=== PATIENT | female | born 1975 | race Caucasian/White ===

== ENCOUNTER 2023-03-18 20:13 | Inpatient (IN) ==
[2023-03-18 20:47] LABS: Basophils # (auto) 0.04 K/uL (0-0.2); Basophils % (auto) 0.3 %; Eosinophils % (auto) 0.7 %; Hematocrit (blood only) 40.1 % (37.0-47.0); Hemoglobin 13.7 g/dl (12.0-16.0); Immature Granulocytes # (auto) 0.07 K/uL (0.01-0.20); Immature Granulocytes % (auto) 0.5 %; Lymphocytes # (auto) 2.41 K/uL (1.2-3.4); Lymphocytes % (auto) 16.6 %; Mean Corpuscular Hemoglobin 32.5 pg (25.0-34.0); Mean Corpuscular Hgb Conc 34.2 g/dL (32.0-36.0); Mean Platelet Volume 9.1 fL (9.4-12.4); Monocytes # (auto) 1.08 K/uL (0.11-0.59); Monocytes % (auto) 7.4 %; Neutrophils % (auto) 74.5 %; Platelet Count 340 K/uL (130-400); RDW Coefficient of Variation 12.4 % (11.5-14.5); RDW Standard Deviation 43.3 fL (36.4-46.3); Red Blood Count 4.22 M/uL (4.20-5.40)
[2023-03-18 20:58] LABS: Pregnancy Test, Serum Negative (Negative)
[2023-03-18 21:00] LABS: Albumin Globulin Ratio 1.5 (0.9-2); Albumin Level 4.6 gm/dl (3.4-5.0); BUN Creatinine Ratio 13.6 (10-20); Bilirubin,Total 0.6 mg/dl (0.2-1.0); Calcium 9.8 mg/dl (8.6-10.3); Creatinine Clr Calc Pharmacy 91.2 ml/min; Est GFR (African American) 124.7 ml/min; Est GFR (Non-African American) 107.6 ml/min; Potassium 3.8 mmol/L (3.5-5.1); Total Protein 7.6 gm/dl (6.0-8.3)
[2023-03-18] MEDS ORDERED: ONDANSETRON INJ 2 MG/ML 2 ML VIAL IV STA (22:04)
[2023-03-18] MEDS ORDERED: ACETAMINOPHEN 1,000 MG/100 ML VIAL IV STA (22:41)
[2023-03-18] MEDS ORDERED: SODIUM CHLORIDE 0.9% 1000ML 1,000 ML IV ONE (22:41)
[2023-03-18] MEDS ORDERED: cefTRIAXone SODIUM 2,000 MG/70 ML BAG IV STA (22:44)
[2023-03-18] MEDS ORDERED: metroNIDAZOLE 500 MG/100 ML BAG IV STA (22:44)
--- NOTE | 2023-03-18 22:45 | Emergency Department Note ---
ED Provider Note History of Present Illness Chief Complaint: Abdominal Pain Stated Complaint: ABDOMINAL PAIN,DIVERTICULITIS,NAUSEA, D/C 03/03 Time Seen by Provider: 03/18/23 22:35 Home Medications Medication Instructions Recorded Confirmed Type mecobalamin (vitamin B12) PO DAILY 10/23/19 03/13/23 History multivitamin 1 tab PO DAILY 10/23/19 03/13/23 History buspirone 10 mg tablet 10 mg PO BID #180 tabs 03/12/22 03/13/23 Rx dicyclomine 10 mg capsule 10 mg PO BID PRN IBS #180 caps 05/21/22 03/13/23 Rx venlafaxine 75 mg capsule,extended 75 mg PO DAILY #90 caps 05/21/22 03/13/23 Rx release 24 hr (Effexor XR) clindamycin phosphate 1 % topical 1 applic topical DAILY #60 grams 08/06/22 03/13/23 Rx gel medroxyprogesterone 150 mg/mL 150 mg IM 10/26/22 03/13/23 History intramuscular syringe venlafaxine 150 mg 150 mg PO DAILY #90 caps 10/31/22 03/13/23 Rx capsule,extended release 24 hr (Effexor XR) amitriptyline 10 mg tablet 10 mg PO HS #90 tabs 11/21/22 03/13/23 Rx cholecalciferol (vitamin D3) 50 4,000 unit PO DAILY 11/29/22 03/13/23 History mcg (2,000 unit) capsule cholestyramine (with sugar) 4 gram 4 g PO BID #1,134 grams 02/07/23 03/13/23 Rx oral powder famotidine 20 mg tablet (Pepcid) 20 mg PO BID PRN acid reflux #60 03/13/23 03/13/23 Rx tabs mirabegron 50 mg tablet,extended 50 mg PO DAILY #90 tabs 03/13/23 03/13/23 Rx release 24 hr ondansetron HCl 4 mg tablet 4 mg PO Q8H PRN nausea and 03/13/23 03/13/23 Rx vomiting #30 tabs pantoprazole 40 mg tablet,delayed 40 mg PO DAILY #30 tabs 03/13/23 03/13/23 Rx release (Protonix) tretinoin 0.1 % topical cream 1 applic topical HS #45 grams 03/13/23 03/13/23 Rx Allergies Allergy/AdvReac Type Severity Reaction Status Date / Time Penicillins AdvReac Hives Verified 03/13/23 16:20 Past Med/Surg History Medical History Acid reflux Acne Anxiety Bipolar disorder Depression HLD (hyperlipidemia) IBS (irritable bowel syndrome) Migraine headache OCD (obsessive compulsive disorder) Vitamin D deficiency Surgical History S/P cholecystectomy (2009) Family History Aunt Breast cancer, Onset Age: 65 Mother Myocardial infarction, Onset Age: 41 Anxiety Depression Diabetes Heart disease Father Anxiety Lung cancer Diabetes Hypertension Lung disease Myocardial infarction Lymphoma Brother Anxiety Denies family history of Ovarian cancer Prostate cancer Colorectal cancer Social History Smoking Status: Never smoker Second Hand Exposure: Yes; Do You Dip or Chew Tobacco: No; Hx Alcohol Use: Yes Alcohol type: beer and wine Alcohol Intake Frequency: 2-3 x/Week Alcohol Intake Frequency Comment: few drinks per week Hx Substance Use: No Preferred Language: Hungarian Communication Ability: Effective Visual Impairment: No Limitations Hearing Ability: Normal [employer] Required: No Beliefs That Will Affect Care: None marital status: Single Current Living Situation: Parent Current Living Situation Comment: lives with mom current occupational status: disabled How many Children do You have: 3 Feels Safe at Home: Yes Childhood Exposure to Second-Hand Smoke: Yes Diet: regular caffeine: Yes (Coffee x 1 cup per day.) during the past year weight has: remained stable Dental Care, Regularly: Yes Physical Activity Frequency: Does not Exercise Seatbelt Use: always Sunscreen Use: Yes Physical Exam Vital Signs Vital Signs - 24 hr 03/18/23 20:19 Temperature 36.5 C Temperature Source Temporal Artery Scan Pulse Rate 99 H Respiratory Rate 18 Respiratory Depth Normal Blood Pressure 155/84 H Blood Pressure Mean 107 Pulse Oximetry 98 Oxygen Delivery Method Room Air Sepsis Recent Fever Within 48 Hours No Sepsis New/Unexplained Change in Mental Status N/A Sepsis Action Taken by Nursing No Action Required Medical Decision Making Laboratory Data 03/18/23 20:31 03/18/23 20:31 Lab Results 03/18/23 03/18/23 03/18/23 Range/Units 20:31 20:31 20:31 WBC 14.50 H (4.8-10.8) K/ul RBC 4.22 (4.20-5.40) M/uL Hgb 13.7 (12.0-16.0) g/dl Hct 40.1 (37.0-47.0) % MCV 95.0 (80.0-100.0) fL MCH 32.5 (25.0-34.0) pg MCHC 34.2 (32.0-36.0) g/dL RDW Std Deviation 43.3 (36.4-46.3) fL RDW Coeff of Tiffanie 12.4 (11.5-14.5) % Plt Count 340 (130-400) K/uL MPV 9.1 L (9.4-12.4) fL Immature Gran % (Auto) 0.5 % Neut % (Auto) 74.5 % Lymph % (Auto) 16.6 % [place] % (Auto) 7.4 % Eos % (Auto) 0.7 % Baso % (Auto) 0.3 % Neut # (Auto) 10.80 H (1.40-6.50) K/uL Lymph # (Auto) 2.41 (1.2-3.4) K/uL [place] # (Auto) 1.08 H (0.11-0.59) K/uL Eos # (Auto) 0.10 (0-0.50) K/uL Baso # (Auto) 0.04 (0-0.2) K/uL Immature Gran # (Auto) 0.07 (0.01-0.20) K/uL Sodium 139 (136-145) mmol/L Potassium 3.8 (3.5-5.1) mmol/L Chloride 102 (98-107) mmol/L Carbon Dioxide 29 (21-32) mmol/L Anion Gap 8 (3-11) BUN 8 (6-23) mg/dl Creatinine 0.59 L (0.6-1.2) mg/dl Est Cr Clr Drug Dosing 91.2 ml/min Est GFR ( Amer) 124.7 ml/min Est GFR (Non-Af Amer) 107.6 ml/min BUN/Creatinine Ratio 13.6 (10-20) Glucose 153 H (70-99(Fasting)) mg/dl Calcium 9.8 (8.6-10.3) mg/dl Total Bilirubin 0.6 (0.2-1.0) mg/dl AST 20 (13-39) U/L ALT 24 (7-52) U/L Alkaline Phosphatase 78 (34-104) U/L Total Protein 7.6 (6.0-8.3) gm/dl Albumin 4.6 (3.4-5.0) gm/dl Globulin 3.0 (2.5-4.0) gm/dl Albumin/Globulin Ratio 1.5 (0.9-2) Lipase 21 (11-82) U/L HCG, Qual Negative (Negative) Discharge Plan Visit Data Chief Complaint: Abdominal Pain Stated Complaint: ABDOMINAL PAIN,DIVERTICULITIS,NAUSEA, D/C 03/03 ED Provider: Thomas Burgos ED Midlevel Provider: Willow Chaparro Forms Stand Alone Forms: [facility] Prescriptions Prescriptions: No Action buspirone 10 mg tablet 10 mg PO BID Qty: 180 1RF dicyclomine 10 mg capsule 10 mg PO BID PRN (Reason: IBS) Qty: 180 4RF venlafaxine [Effexor XR] 75 mg capsule,extended release 24hr 75 mg PO DAILY Qty: 90 3RF clindamycin phosphate 1 % gel 1 applic TOP DAILY Qty: 60 3RF venlafaxine [Effexor XR] 150 mg capsule,extended release 24hr 150 mg PO DAILY Qty: 90 1RF amitriptyline 10 mg tablet 10 mg PO HS Qty: 90 2RF cholecalciferol (vitamin D3) 50 mcg (2,000 unit) capsule 4,000 unit PO DAILY cholestyramine (with sugar) 4 gram powder 4 g PO BID Qty: 1134 1RF multivitamin tablet 1 tab PO DAILY mecobalamin (vitamin B12) PO DAILY medroxyprogesterone 150 mg/mL syringe 150 mg IM mirabegron 50 mg tablet extended release 24 hr 50 mg PO DAILY Qty: 90 2RF tretinoin 0.1 % cream 1 applic topical HS Qty: 45 2RF Rx Instructions: 1 applic topical at bedtime; ondansetron HCl 4 mg tablet 4 mg PO Q8H PRN (Reason: nausea and vomiting) Qty: 30 0RF pantoprazole [Protonix] 40 mg tablet,delayed release (DR/EC) 40 mg PO DAILY Qty: 30 2RF famotidine [Pepcid] 20 mg tablet 20 mg PO BID PRN (Reason: acid reflux) Qty: 60 2RF Referrals Referrals: Anusha Kohler DO [Primary Care Provider] -
--- NOTE | 2023-03-18 22:48 | Emergency Department Note ---
History of Present Illness General Chief complaint: Abdominal Pain Stated complaint: ABDOMINAL PAIN,DIVERTICULITIS,NAUSEA, D/C 03/03 Time Seen by Provider: 03/18/23 22:35 History of Present Illness Maximum Pain Intensity: 10 This 47-year-old female that was recently discharged from the hospital for diverticulitis that finished Cipro and Flagyl presents the ER for worsening abdominal pain with nausea and not feeling well. Patient denies chest pain, dyspnea, cough, congestion, diarrhea. She has a history of diverticulitis. Home Medications Medication Instructions Recorded Confirmed Type mecobalamin (vitamin B12) PO DAILY 10/23/19 03/13/23 History multivitamin 1 tab PO DAILY 10/23/19 03/13/23 History buspirone 10 mg tablet 10 mg PO BID #180 tabs 03/12/22 03/13/23 Rx dicyclomine 10 mg capsule 10 mg PO BID PRN IBS #180 caps 05/21/22 03/13/23 Rx venlafaxine 75 mg capsule,extended 75 mg PO DAILY #90 caps 05/21/22 03/13/23 Rx release 24 hr (Effexor XR) clindamycin phosphate 1 % topical 1 applic topical DAILY #60 grams 08/06/22 03/13/23 Rx gel medroxyprogesterone 150 mg/mL 150 mg IM 10/26/22 03/13/23 History intramuscular syringe venlafaxine 150 mg 150 mg PO DAILY #90 caps 10/31/22 03/13/23 Rx capsule,extended release 24 hr (Effexor XR) amitriptyline 10 mg tablet 10 mg PO HS #90 tabs 11/21/22 03/13/23 Rx cholecalciferol (vitamin D3) 50 4,000 unit PO DAILY 11/29/22 03/13/23 History mcg (2,000 unit) capsule cholestyramine (with sugar) 4 gram 4 g PO BID #1,134 grams 02/07/23 03/13/23 Rx oral powder famotidine 20 mg tablet (Pepcid) 20 mg PO BID PRN acid reflux #60 03/13/23 03/13/23 Rx tabs mirabegron 50 mg tablet,extended 50 mg PO DAILY #90 tabs 03/13/23 03/13/23 Rx release 24 hr ondansetron HCl 4 mg tablet 4 mg PO Q8H PRN nausea and 05/24/23 05/24/23 Rx vomiting #30 tabs pantoprazole 40 mg tablet,delayed 40 mg PO DAILY #30 tabs 03/13/23 03/13/23 Rx release (Protonix) tretinoin 0.1 % topical cream 1 applic topical HS #45 grams 03/13/23 03/13/23 Rx Allergies Allergy/AdvReac Type Severity Reaction Status Date / Time Penicillins AdvReac Hives Verified 03/13/23 16:20 Past Med/Surg History Medical History Acid reflux Acne Anxiety Bipolar disorder Depression HLD (hyperlipidemia) IBS (irritable bowel syndrome) Migraine headache OCD (obsessive compulsive disorder) Vitamin D deficiency Surgical History S/P cholecystectomy (2009) Family History Aunt Breast cancer, Onset Age: 65 Mother Myocardial infarction, Onset Age: 41 Anxiety Depression Diabetes Heart disease Father Anxiety Lung cancer Diabetes Hypertension Lung disease Myocardial infarction Lymphoma Brother Anxiety Denies family history of Ovarian cancer Prostate cancer Colorectal cancer Social History Smoking Status: Never smoker Second Hand Exposure: Yes; Do You Dip or Chew Tobacco: No; Hx Alcohol Use: Yes Alcohol type: beer and wine Alcohol Intake Frequency: 2-3 x/Week Alcohol Intake Frequency Comment: few drinks per week Hx Substance Use: No Preferred Language: Northern Irish Communication Ability: Effective Visual Impairment: No Limitations Hearing Ability: Normal Criminal Justice Instructor Required: No Beliefs That Will Affect Care: None marital status: Single Current Living Situation: Parent Current Living Situation Comment: lives with mom current occupational status: disabled How many Children do You have: 3 Feels Safe at Home: Yes Childhood Exposure to Second-Hand Smoke: Yes Diet: regular caffeine: Yes (Coffee x 1 cup per day.) during the past year weight has: remained stable Dental Care, Regularly: Yes Physical Activity Frequency: Does not Exercise Seatbelt Use: always Sunscreen Use: Yes Review of Systems A total of 10 systems reviewed and were otherwise negative Physical Exam Vital Signs Vital Signs - 24 hr 03/18/23 20:19 03/18/23 22:39 03/18/23 23:00 Temperature 36.5 C Temperature Source Temporal Artery Scan Pulse Rate 99 H 93 H 78 Pulse Rate from SpO2 Sensor 91 H 77 Respiratory Rate 18 16 18 Respiratory Depth Normal Blood Pressure 155/84 H 163/102 H 120/78 Blood Pressure Mean 107 122 92 Pulse Oximetry 98 99 98 Oxygen Delivery Method Room Air Room Air Room Air Sepsis Recent Fever Within 48 Hours No Sepsis New/Unexplained Change in Mental Status N/A Sepsis Action Taken by Nursing No Action Required 03/18/23 23:30 03/19/23 00:00 03/19/23 00:30 Temperature Temperature Source Pulse Rate 79 73 76 Pulse Rate from SpO2 Sensor 78 71 78 Respiratory Rate 17 18 22 Respiratory Depth Blood Pressure 118/75 121/77 131/82 Blood Pressure Mean 89 91 98 Pulse Oximetry 98 98 96 Oxygen Delivery Method Room Air Room Air Room Air Sepsis Recent Fever Within 48 Hours Sepsis New/Unexplained Change in Mental Status Sepsis Action Taken by Nursing 03/19/23 01:00 Temperature Temperature Source Pulse Rate 85 Pulse Rate from SpO2 Sensor 84 Respiratory Rate 21 Respiratory Depth Blood Pressure 123/77 Blood Pressure Mean 92 Pulse Oximetry 98 Oxygen Delivery Method Room Air Sepsis Recent Fever Within 48 Hours Sepsis New/Unexplained Change in Mental Status Sepsis Action Taken by Nursing VITALS: Vitals are noted on the nurse's note and reviewed by myself. Vital signs stable. GENERAL: White female, in no acute distress, nondiaphoretic, well-developed wel l-nourished. SKIN: The skin was without rashes, erythema, edema, or bruising. There is no tenting of the skin. Capillary reflex less than 2 seconds. HEAD: Normocephalic atraumatic. EARS: External auditory canals clear, EYES: Pupils equal round and reactive to light and accommodation. Conjunctivae without injection, sclerae without icterus. Extraocular movements intact. NOSE: Patent, turbinates without inflammation or discharge. MOUTH: Mucous membranes moist. Pharynx without erythema or exudate. Uvula midline. Airway patent. Tongue does not deviate. NECK: Supple without nuchal rigidity. No lymphadenopathy. No thyromegaly. Cervical spine is nontender. No JVD. HEART: Regular rate and rhythm LUNGS: Clear to auscultation bilaterally without wheezes, rales or rhonchi. No retractions or accessory muscle use. ABDOMEN: Positive bowel sounds x 4. Normal tympanic percussion. Soft, tender mid lower abdomen, without masses or organomegaly. Hernandez sign negative. No guarding or rebound tenderness. No CVA tenderness MUSCULOSKELETAL: No muscle atrophy, erythema, or edema noted. NEURO: Patient was alert and oriented to person place and time. Normal sensation to light and sharp touch. No focal neurological deficits. Course Administered Medications Discontinued Medications Sodium Chloride (Nss 1000ml) 1,000 mls @ 999 mls/hr IV .Q1H1M ONE Stop: 03/18/23 23:41 Last Infusion: 03/18/23 23:53 Dose: 0 mls/hr Documented By: JOSE CRUZ Admin: 03/18/23 22:47 Dose: 999 mls/hr Documented By: JOSE CRUZ Acetaminophen (Ofirmev) 1,000 mg in 100 mls @ 400 mls/hr IV NOW STA Stop: 03/18/23 22:55 Last Infusion: 03/18/23 23:40 Dose: 0 mls/hr Documented By: JOSE CRUZ Admin: 03/18/23 22:46 Dose: 400 mls/hr Documented By: JOSE CRUZ Ceftriaxone Sodium (Rocephin) 2,000 mg in 70 mls @ 140 mls/hr IV NOW STA Stop: 03/18/23 23:13 Last Infusion: 03/19/23 00:14 Dose: 0 mls/hr Documented By: JOSE CRUZ Admin: 03/18/23 23:43 Dose: 140 mls/hr Documented By: JOSE CRUZ Metronidazole (Flagyl) 500 mg in 100 mls @ 100 mls/hr IV NOW STA; Protocol Stop: 03/18/23 23:43 Last Infusion: 03/19/23 01:23 Dose: 0 mls/hr Documented By: JOSE CRUZ Admin: 03/19/23 00:12 Dose: 100 mls/hr Documented By: JOSE CRUZ Ioversol (Optiray 320 100ml) 81 ml IV ONCE ONE Stop: 03/18/23 23:20 Last Admin: 03/18/23 23:19 Dose: 81 ml Documented By: [email or web address] Ondansetron HCl (Ondansetron Inj 2 Mg/Ml 2 Ml Vial) 4 mg IV NOW STA Stop: 03/18/23 22:05 Last Admin: 03/18/23 22:46 Dose: 4 mg Documented By: JOSE CRUZ Medical Decision Making Medical Records Attestation: I reviewed the patient's medical records. Home Medications Current Medication List: was personally reviewed by me Laboratory Data Attestation: I reviewed the patient's lab results. 03/18/23 20:31 03/18/23 20:31 Lab Results 03/18/23 03/18/23 03/18/23 Range/Units 20:31 20:31 20:31 WBC 14.50 H (4.8-10.8) K/ul RBC 4.22 (4.20-5.40) M/uL Hgb 13.7 (12.0-16.0) g/dl Hct 40.1 (37.0-47.0) % MCV 95.0 (80.0-100.0) fL MCH 32.5 (25.0-34.0) pg MCHC 34.2 (32.0-36.0) g/dL RDW Std Deviation 43.3 (36.4-46.3) fL RDW Coeff of Tiffanie 12.4 (11.5-14.5) % Plt Count 340 (130-400) K/uL MPV 9.1 L (9.4-12.4) fL Immature Gran % (Auto) 0.5 % Neut % (Auto) 74.5 % Lymph % (Auto) 16.6 % Bacon % (Auto) 7.4 % Eos % (Auto) 0.7 % Baso % (Auto) 0.3 % Neut # (Auto) 10.80 H (1.40-6.50) K/uL Lymph # (Auto) 2.41 (1.2-3.4) K/uL Bacon # (Auto) 1.08 H (0.11-0.59) K/uL Eos # (Auto) 0.10 (0-0.50) K/uL Baso # (Auto) 0.04 (0-0.2) K/uL Immature Gran # (Auto) 0.07 (0.01-0.20) K/uL Sodium 139 (136-145) mmol/L Potassium 3.8 (3.5-5.1) mmol/L Chloride 102 (98-107) mmol/L Carbon Dioxide 29 (21-32) mmol/L Anion Gap 8 (3-11) BUN 8 (6-23) mg/dl Creatinine 0.59 L (0.6-1.2) mg/dl Est Cr Clr Drug Dosing 91.2 ml/min Est GFR ( Amer) 124.7 ml/min Est GFR (Non-Af Amer) 107.6 ml/min BUN/Creatinine Ratio 13.6 (10-20) Glucose 153 H (70-99(Fasting)) mg/dl Lactate (0.4-2.0) mmol/L Calcium 9.8 (8.6-10.3) mg/dl Total Bilirubin 0.6 (0.2-1.0) mg/dl AST 20 (13-39) U/L ALT 24 (7-52) U/L Alkaline Phosphatase 78 (34-104) U/L Total Protein 7.6 (6.0-8.3) gm/dl Albumin 4.6 (3.4-5.0) gm/dl Globulin 3.0 (2.5-4.0) gm/dl Albumin/Globulin Ratio 1.5 (0.9-2) Lipase 21 (11-82) U/L HCG, Qual Negative (Negative) Urine Color Urine Appearance (Clear) Urine pH (4.5-7.5) Ur Specific Lynx (1.000-1.030) Urine Protein (Negative) Urine Glucose (UA) (Negative) Urine Ketones (Negative) Urine Blood (Negative) Urine Nitrite (Negative) Urine Bilirubin (Negative) Urine Urobilinogen (Negative) Ur Leukocyte Esterase (Negative) Urine WBC (Auto) (0-5) /hpf Urine RBC (Auto) (0-4) /hpf U Hyaline Cast (Auto) (0-5) /lpf U Epithel Cells (Auto) (0-5) /lpf Urine Bacteria (Auto) (Negative) SARS-CoV-2, RNA, NAAT (NEGATIVE) 03/18/23 03/18/23 03/19/23 Range/Units 22:39 23:43 00:17 WBC (4.8-10.8) K/ul RBC (4.20-5.40) M/uL Hgb (12.0-16.0) g/dl Hct (37.0-47.0) % MCV (80.0-100.0) fL MCH (25.0-34.0) pg MCHC (32.0-36.0) g/dL RDW Std Deviation (36.4-46.3) fL RDW Coeff of Tiffanie (11.5-14.5) % Plt Count (130-400) K/uL MPV (9.4-12.4) fL Immature Gran % (Auto) % Neut % (Auto) % Lymph % (Auto) % Bacon % (Auto) % Eos % (Auto) % Baso % (Auto) % Neut # (Auto) (1.40-6.50) K/uL Lymph # (Auto) (1.2-3.4) K/uL Bacon # (Auto) (0.11-0.59) K/uL Eos # (Auto) (0-0.50) K/uL Baso # (Auto) (0-0.2) K/uL Immature Gran # (Auto) (0.01-0.20) K/uL Sodium (136-145) mmol/L Potassium (3.5-5.1) mmol/L Chloride (98-107) mmol/L Carbon Dioxide (21-32) mmol/L Anion Gap (3-11) BUN (6-23) mg/dl Creatinine (0.6-1.2) mg/dl Est Cr Clr Drug Dosing ml/min Est GFR ( Amer) ml/min Est GFR (Non-Af Amer) ml/min BUN/Creatinine Ratio (10-20) Glucose (70-99(Fasting)) mg/dl Lactate 0.9 (0.4-2.0) mmol/L Calcium (8.6-10.3) mg/dl Total Bilirubin (0.2-1.0) mg/dl AST (13-39) U/L ALT (7-52) U/L Alkaline Phosphatase (34-104) U/L Total Protein (6.0-8.3) gm/dl Albumin (3.4-5.0) gm/dl Globulin (2.5-4.0) gm/dl Albumin/Globulin Ratio (0.9-2) Lipase (11-82) U/L HCG, Qual (Negative) Urine Color Yellow Urine Appearance Cloudy A (Clear) Urine pH 8.0 H (4.5-7.5) Ur Specific Lynx 1.017 (1.000-1.030) Urine Protein Negative (Negative) Urine Glucose (UA) Negative (Negative) Urine Ketones Negative (Negative) Urine Blood Negative (Negative) Urine Nitrite Negative (Negative) Urine Bilirubin Negative (Negative) Urine Urobilinogen Negative (Negative) Ur Leukocyte Esterase 1+ H (Negative) Urine WBC (Auto) 5-10 H (0-5) /hpf Urine RBC (Auto) 0-4 (0-4) /hpf U Hyaline Cast (Auto) 1-5 (0-5) /lpf U Epithel Cells (Auto) >30 H (0-5) /lpf Urine Bacteria (Auto) Negative (Negative) SARS-CoV-2, RNA, NAAT NEGATIVE (NEGATIVE) Imaging Data Attestation: I personally reviewed and interpreted this imaging study as follows: Radiologist's Impression: Abdomen/Pelvis CT 03/18/23 22:04 Exam(s): CT ABDOMEN + PELVIS With Contrast IV Amt: 81ml Optiray 320 EXAM: CT Abdomen and Pelvis With Intravenous Contrast CLINICAL HISTORY: Reason for exam: pain, hx divertic. TECHNIQUE: Axial computed tomography images of the abdomen and pelvis with intravenous contrast. CTDI is 12.69 mGy and DLP is 576.1 mGy-cm. Automated exposure control was utilized for the study. A dose lowering technique was utilized adhering to the principles of ALARA. CONTRAST: Patient received 81ml Optiray 320 of IV contrast COMPARISON: CT abdomen pelvis 02/07/2022 FINDINGS: ABDOMEN: Liver: Unremarkable. Gallbladder and bile ducts: Status post cholecystectomy. Pancreas: Unremarkable. Spleen: Unremarkable. Adrenals: Unremarkable. Kidneys and ureters: Unremarkable. No obstructing stones. No hydronephrosis. Stomach and bowel: Acute diverticulitis of the transverse colon. Moderate inflammatory changes. No perforation. PELVIS: Appendix: No findings to suggest acute appendicitis. Bladder: Unremarkable. Reproductive: Unremarkable as visualized. ABDOMEN and PELVIS: Intraperitoneal space: Complex free fluid within the pelvis. No drainable abscess. No free air. Bones/joints: No acute fracture. Soft tissues: Unremarkable. Vasculature: Unremarkable. Lymph nodes: Unremarkable. IMPRESSION: 1. Acute diverticulitis of the transverse colon. No perforation. 2. Complex free fluid within the pelvis. No drainable abscess. Electronically signed by: Tai Mcdonnell MD 03/19/23 00:10 AM [facility] Narrative Prior records/ancillary studies reviewed. Triage Nursing notes reviewed. Additional history obtained from nursing. The patient's history was concerning for abdominal pain. Differential diagnosis: Etiologies such as appendicitis, diverticulitis, PUD, biliary pathology, UTI, pancreatitis, obstruction, mesenteric ischemia, aortic pathology, infections, inflammatory bowel disease, renal colic, as well as others were entertained. Physical examination findings: As above. ER treatment provided: An order was placed for continuous cardiac monitoring. The monitor shows a rate of 60-1 50 with a sinus rhythm per my Independent interpretation. IV fluids Tylenol Zofran Flagyl and Rocephin were ordered I did request the records from [place] to review patient's inpatient record from last week On reassessment the patient felt better. Diagnostics interpreted by me: The labs Independently Interpreted by myself revealed leukocytosis, stable H&H Hyperglycemia without DKA Imaging studies: CT abdomen pelvis was reviewed by myself and read by radiology as above. Concerning for diverticulitis which is recurrent Consultation: A consultation was placed with the hospitalist. The case was discussed and diagnostics were reviewed. The patient was evaluated in the ER for further treatment. Exam and history seem consistent with recurrent diverticulitis. Patient was just admitted to another hospital for similar complaint. Symptoms got much worse and patient returned for further evaluation and treatment. She was medicated as above. Labs and diagnostics are in for interpreted by myself. Medicine was consulted and the case was discussed. She will be admitted to the medical service for further evaluation and treatment. Patient still moderate amount of pain. She was vomiting. By the evaluation outlined above emergent etiologies such as appendicitis, PUD, biliary pathology, UTI, pancreatitis, obstruction, mesenteric ischemia, aortic pathology, inflammatory bowel disease, renal colic, as well as others were deemed relatively unlikely. The pt informed about the findings as listed above. All questions were answered and pleased with the treatment. The chart was completed utilizing [employer] Speech voice recognition software. Grammatical errors, random word insertions, pronoun errors, and incomplete sentences are an occassional consequence of this system due to software limitations, ambient noise, and hardware issues. Any formal questions or concerns about the content, text, or information contained within the body of this dictation should be directly addressed to the physician veterinary assistant technician for clarification. Impression & Plan Acute diverticulitis, Failure of outpatient treatment Discharge Plan Visit Data Chief Complaint: Abdominal Pain Stated Complaint: ABDOMINAL PAIN,DIVERTICULITIS,NAUSEA, D/C 03/03 ED Provider: Thomas Bugros ED Midlevel Provider: Willow Chaparro Discharge Problem: Acute diverticulitis, Failure of outpatient treatment Patient Disposition: Admitted As Inpatient Condition: Good Forms Stand Alone Forms: My [facility] Prescriptions Prescriptions: No Action buspirone 10 mg tablet 10 mg PO BID Qty: 180 1RF dicyclomine 10 mg capsule 10 mg PO BID PRN (Reason: IBS) Qty: 180 4RF venlafaxine [Effexor XR] 75 mg capsule,extended release 24hr 75 mg PO DAILY Qty: 90 3RF clindamycin phosphate 1 % gel 1 applic TOP DAILY Qty: 60 3RF venlafaxine [Effexor XR] 150 mg capsule,extended release 24hr 150 mg PO DAILY Qty: 90 1RF amitriptyline 10 mg tablet 10 mg PO HS Qty: 90 2RF cholecalciferol (vitamin D3) 50 mcg (2,000 unit) capsule 4,000 unit PO DAILY cholestyramine (with sugar) 4 gram powder 4 g PO BID Qty: 1134 1RF multivitamin tablet 1 tab PO DAILY mecobalamin (vitamin B12) PO DAILY medroxyprogesterone 150 mg/mL syringe 150 mg IM mirabegron 50 mg tablet extended release 24 hr 50 mg PO DAILY Qty: 90 2RF tretinoin 0.1 % cream 1 applic topical HS Qty: 45 2RF Rx Instructions: 1 applic topical at bedtime; ondansetron HCl 4 mg tablet 4 mg PO Q8H PRN (Reason: nausea and vomiting) Qty: 30 0RF pantoprazole [Protonix] 40 mg tablet,delayed release (DR/EC) 40 mg PO DAILY Qty: 30 2RF famotidine [Pepcid] 20 mg tablet 20 mg PO BID PRN (Reason: acid reflux) Qty: 60 2RF Referrals Referrals: Anusha Kohlre DO [Primary Care Provider] -
[2023-03-18 22:53] LABS: Appearance Urine Cloudy (Clear); Bacteria Urine Automated Negative (Negative); Bilirubin Urine Negative (Negative); Blood Urine Negative (Negative); Color Urine Yellow; Epithelial Cell Urine Auto >30 /lpf (0-5); Glucose Urine UA Negative (Negative); Ketones Urine Negative (Negative); Leukocyte Esterase Urine 1+ (Negative); Nitrite Urine Negative (Negative); Protein Urine Negative (Negative); RBC Urine Automated 0-4 /hpf (0-4); Specific Gravity Urine 1.017 (1.000-1.030); Urobilinogen Urine Negative (Negative)
[2023-03-18] MEDS ORDERED: OPTIRAY 320 100ml IV ONE (23:19)
--- NOTE | 2023-03-19 00:11 | CT Scan Report ---
Exam(s): CT ABDOMEN + PELVIS With Contrast IV Amt: 81ml Optiray 320 EXAM: CT Abdomen and Pelvis With Intravenous Contrast CLINICAL HISTORY: Reason for exam: pain, hx divertic. TECHNIQUE: Axial computed tomography images of the abdomen and pelvis with intravenous contrast. CTDI is 12.69 mGy and DLP is 576.1 mGy-cm. Automated exposure control was utilized for the study. A dose lowering technique was utilized adhering to the principles of ALARA. CONTRAST: Patient received 81ml Optiray 320 of IV contrast COMPARISON: CT abdomen pelvis 02/07/2022 FINDINGS: ABDOMEN: Liver: Unremarkable. Gallbladder and bile ducts: Status post cholecystectomy. Pancreas: Unremarkable. Spleen: Unremarkable. Adrenals: Unremarkable. Kidneys and ureters: Unremarkable. No obstructing stones. No hydronephrosis. Stomach and bowel: Acute diverticulitis of the transverse colon. Moderate inflammatory changes. No perforation. PELVIS: Appendix: No findings to suggest acute appendicitis. Bladder: Unremarkable. Reproductive: Unremarkable as visualized. ABDOMEN and PELVIS: Intraperitoneal space: Complex free fluid within the pelvis. No drainable abscess. No free air. Bones/joints: No acute fracture. Soft tissues: Unremarkable. Vasculature: Unremarkable. Lymph nodes: Unremarkable. IMPRESSION: 1. Acute diverticulitis of the transverse colon. No perforation. 2. Complex free fluid within the pelvis. No drainable abscess. Electronically signed by: Tai Mcdonnell MD 03/19/23 00:10 AM
[2023-03-19] MEDS ORDERED: MoRPHine SULFATE 4 MG/ML 1 ML CARP\\VIAL IV STA (02:57)
[2023-03-19] MEDS ORDERED: PANTOprazole 40 MG in SYRINGE 0 ML IV STA (04:09)
[2023-03-19] MEDS: ONDANSETRON INJ 2 MG/ML 2 ML VIAL IV PRN ×2 (04:27→12:24)
--- NOTE | 2023-03-19 04:58 | History & Physical Report ---
Date of Service March 19, 2023 Assessment & Plan (1) Acute diverticulitis: Plan: Patient presents to ED with complaints of acute worsening of abdominal pain associated with significant nausea and vomiting. Patient also reports poor p.o. intake over the past few days. Patient found to have elevated white count of 14.5 in in the ED along with physical examination indicating tenderness in the left lower quadrant area CT of the abdomen shows evidence of inflammation without perforation consistent with acute diverticulitis of the transverse colon. will keep patient n.p.o. and continue IV fluids. IV antibiotic therapy with IV ceftriaxone and IV Flagyl with analgesics as needed GI consultation (2) Leukocytosis: Plan: Patient found to evaluate a white count of 14.5 in the ED Acute leukocytosis secondary to underlying inflammation from acute diverticulitis Continue IV antibiotics with IV ceftriaxone and IV Flagyl as patient seem to have failed outpatient therapy on oral antibiotics (3) Acid reflux: Plan: Patient has a known history of GERD and is on oral PPI at home We will continue patient on IV PPI therapy (4) Bipolar disorder: Plan: Continue home dose of venlafaxine and buspirone once patient can tolerate oral meds. History of Present Illness Chief Complaint: Patient presents to ED with complaints of abdominal pain Primary Care Provider: Anusha Kohler DO This is a 47-year-old female with past medical history significant for history of acid reflux, irritable bowel syndrome bipolar disorder who presents to the emergency department with complaints of abdominal pain associated with nausea symptoms. Patient reports he was recently seen in [facility] for evaluation of similar abdominal pain about 2 weeks ago and was treated with a course of antibiotics including Cipro and Flagyl which she completed 2 days ago. Patient however reports that he started experiencing progressive worsening of symptoms over the past few days and reports that today the pain worsened to severe and patient hence decided to present to ED for further evaluation. Patient reports ongoing nausea symptoms with decreased p.o. intake and reports not feeling well overall. Patient was evaluated in the ED and is given a dose of IV Zofran to control nausea symptoms had a CT of the abdomen that shows evidence of diverticulitis involving the transverse colon. Patient was given IV fluids with IV antibiotics and is being admitted for further management at this time. Allergies Allergy/AdvReac Type Severity Reaction Status Date / Time Penicillins AdvReac Hives Verified 03/13/23 16:20 Home Medications Medication Instructions Recorded Confirmed Type multivitamin 1 tab PO QAM 10/23/19 03/19/23 History medroxyprogesterone 150 mg/mL 150 mg IM . EVERY 90 DAYS 10/26/22 03/19/23 History intramuscular syringe amitriptyline 10 mg tablet 10 mg PO HS #90 tabs 11/21/22 03/19/23 Rx cholecalciferol (vitamin D3) 50 4,000 unit PO QAM 11/29/22 03/19/23 History mcg (2,000 unit) capsule famotidine 20 mg tablet (Pepcid) 20 mg PO BID PRN acid reflux #60 03/13/23 03/19/23 Rx tabs ondansetron HCl 4 mg tablet 4 mg PO Q8H PRN nausea and 03/13/23 03/19/23 Rx vomiting #30 tabs tretinoin 0.1 % topical cream 1 applic topical HS #45 grams 03/13/23 03/19/23 Rx clindamycin phosphate 1 % topical 1 applic topical QAM 03/19/23 03/19/23 History gel mirabegron 50 mg tablet,extended 50 mg PO QAM 03/19/23 03/19/23 History release 24 hr pantoprazole 40 mg tablet,delayed 40 mg PO QAM 03/19/23 03/19/23 History release (Protonix) venlafaxine 150 mg 150 mg PO QAM 03/19/23 03/19/23 History capsule,extended release 24 hr (Effexor XR) venlafaxine 75 mg capsule,extended 75 mg PO QAM 03/19/23 03/19/23 History release 24 hr (Effexor XR) vitamin B complex 1 tab PO QAM 03/19/23 03/19/23 History Past Med/Surg History Medical History Acid reflux Acne Anxiety Bipolar disorder Depression HLD (hyperlipidemia) IBS (irritable bowel syndrome) Migraine headache OCD (obsessive compulsive disorder) Vitamin D deficiency Surgical History S/P cholecystectomy (2009) Family History Aunt Breast cancer, Onset Age: 65 Mother Myocardial infarction, Onset Age: 41 Anxiety Depression Diabetes Heart disease Father Anxiety Lung cancer Diabetes Hypertension Lung disease Myocardial infarction Lymphoma Brother Anxiety Denies family history of Ovarian cancer Prostate cancer Colorectal cancer Social History Smoking Status: Never smoker Second Hand Exposure: No; Do You Dip or Chew Tobacco: No; Hx Alcohol Use: Yes Alcohol type: beer and wine Alcohol Intake Frequency: 2-3 x/Week Alcohol Intake Frequency Comment: few drinks per week Hx Substance Use: Yes Last Used Substance: Unknown Preferred Language: Latvian Communication Ability: Effective Visual Impairment: No Limitations Hearing Ability: Normal Delivery Rep Required: No Beliefs That Will Affect Care: None marital status: Single Current Living Situation: Alone Current Living Situation Comment: lives with mom current occupational status: disabled How many Children do You have: 3 Other Information That Helps Us Care for You: No Feels Safe at Home: Yes Safety Concerns: Feels Safe At This Time Childhood Exposure to Second-Hand Smoke: Yes Diet: regular caffeine: Yes (Coffee x 1 cup per day.) during the past year weight has: remained stable Dental Care, Regularly: Yes Physical Activity Frequency: Does not Exercise Seatbelt Use: always Sunscreen Use: Yes Assistive Devices: Glasses Review of Systems Review of Systems: Constitutional-describes fatigue ENT-no blurred vision, no double vision, no epistaxis, Respiratory- no shortness of breath noted with exertion. No wheezing Cardiac-no palpitations, no chest pain, no syncope GI-ongoing nausea with poor p.o. intake over the past week with abdominal pain -no urinary retention, no urinary incontinence, Musculoskeletal-no joint pain, no muscle tenderness Skin-no bruising, no rashes, no pruritus Neuro-no isolated weakness, Physical Exam Physical Exam: Head and ENT no thyroid enlargement trachea midline Cardiovascular S1-S2 are normal no S3 Lungs bilateral air entry decreased at bases with no wheezing Abdomen soft mild distention with tenderness in the left lower quadrant and e pigastric areas no rebound tenderness Extremity shows trace edema Neurologically no focal deficits Skin shows no rash no cyanosis Results & Data Results & Data Vital Signs (Past 12 Hours) Vital Signs Temp Pulse Resp BP Pulse Ox O2 Del Method 03/19/23 04:00 73 17 97 03/19/23 04:00 108/62 03/19/23 03:31 80 14 97 03/19/23 03:31 100/65 03/19/23 03:30 71 15 91 03/19/23 03:00 77 14 96 03/19/23 03:00 121/86 03/19/23 02:30 77 16 130/86 98 Room Air 03/19/23 02:00 64 18 116/80 97 Room Air 03/19/23 01:40 72 15 118/84 98 Room Air 03/19/23 01:00 85 21 123/77 98 Room Air 03/19/23 00:30 76 22 131/82 96 Room Air 03/19/23 00:00 73 18 121/77 98 Room Air 03/18/23 23:30 79 17 118/75 98 Room Air 03/18/23 23:00 78 18 120/78 98 Room Air 03/18/23 22:39 93 H 16 163/102 H 99 Room Air 03/18/23 20:19 36.5 C 99 H 18 155/84 H 98 Room Air Laboratory Results Short CBC 03/18/23 Range/Units 20:31 WBC 14.50 H (4.8-10.8) K/ul Hgb 13.7 (12.0-16.0) g/dl Hct 40.1 (37.0-47.0) % Plt Count 340 (130-400) K/uL BMP 03/18/23 20:31 Sodium 139 Potassium 3.8 Chloride 102 Carbon Dioxide 29 BUN 8 Creatinine 0.59 L Glucose 153 H Calcium 9.8 Liver Function 03/18/23 Range/Units 20:31 Total Bilirubin 0.6 (0.2-1.0) mg/dl AST 20 (13-39) U/L ALT 24 (7-52) U/L Alkaline Phosphatase 78 (34-104) U/L Albumin 4.6 (3.4-5.0) gm/dl Urine 03/18/23 Range/Units 22:39 Urine Color Yellow Urine Appearance Cloudy A (Clear) Urine pH 8.0 H (4.5-7.5) Ur Specific [place] 1.017 (1.000-1.030) Urine Protein Negative (Negative) Urine Glucose (UA) Negative (Negative) Diagnostic Findings Abdomen/Pelvis CT 03/18/23 22:04 Exam(s): CT ABDOMEN + PELVIS With Contrast IV Amt: 81ml Optiray 320 EXAM: CT Abdomen and Pelvis With Intravenous Contrast CLINICAL HISTORY: Reason for exam: pain, hx divertic. TECHNIQUE: Axial computed tomography images of the abdomen and pelvis with intravenous contrast. CTDI is 12.69 mGy and DLP is 576.1 mGy-cm. Automated exposure control was utilized for the study. A dose lowering technique was utilized adhering to the principles of ALARA. CONTRAST: Patient received 81ml Optiray 320 of IV contrast COMPARISON: CT abdomen pelvis 02/07/2022 FINDINGS: ABDOMEN: Liver: Unremarkable. Gallbladder and bile ducts: Status post cholecystectomy. Pancreas: Unremarkable. Spleen: Unremarkable. Adrenals: Unremarkable. Kidneys and ureters: Unremarkable. No obstructing stones. No hydronephrosis. Stomach and bowel: Acute diverticulitis of the transverse colon. Moderate inflammatory changes. No perforation. PELVIS: Appendix: No findings to suggest acute appendicitis. Bladder: Unremarkable. Reproductive: Unremarkable as visualized. ABDOMEN and PELVIS: Intraperitoneal space: Complex free fluid within the pelvis. No drainable abscess. No free air. Bones/joints: No acute fracture. Soft tissues: Unremarkable. Vasculature: Unremarkable. Lymph nodes: Unremarkable. IMPRESSION: 1. Acute diverticulitis of the transverse colon. No perforation. 2. Complex free fluid within the pelvis. No drainable abscess. Electronically signed by: Tai Mcdonnell MD 03/19/23 00:10 AM Code Status & VTE Plan VTE Prophylaxis Plan VTE Prophylaxis will be ordered: Yes PG Care Time/CCT Total # of Minutes Spent Total Time Spent with Patient: Total time spent is greater than 50% in coordination of care (as documented) at patient's floor/unit and/or counseling patient: Coding Level of Care Code 62687 INT INP/OBS CARE 2/55MIN Diagnoses Acute diverticulitis K57.92 Leukocytosis D72.829 Acid reflux K21.9 Bipolar disorder F31.9
[2023-03-19] MEDS ORDERED: ONDANSETRON INJ 2 MG/ML 2 ML VIAL IV PRN (05:38)
[2023-03-19] MEDS ORDERED: FAMOTIDINE 20 MG TAB PO PRN (05:38)
[2023-03-19] MEDS ORDERED: ONDANSETRON 4 MG OD TAB PO PRN (05:58)
[2023-03-19] MEDS ORDERED: HYDROmorphone INJ 1 MG/ML SYRINGE IV STA (06:07)
[2023-03-19 08:28] LABS: Hematocrit (blood only) 33.9 % (37.0-47.0); Mean Corpuscular Hemoglobin 33.2 pg (25.0-34.0); Mean Corpuscular Hgb Conc 35.4 g/dL (32.0-36.0); Mean Corpuscular Volume 93.9 fL (80.0-100.0); Mean Platelet Volume 9.1 fL (9.4-12.4); Platelet Count 262 K/uL (130-400); RDW Coefficient of Variation 12.5 % (11.5-14.5); RDW Standard Deviation 43.4 fL (36.4-46.3); Red Blood Count 3.61 M/uL (4.20-5.40); White Blood Count 12.64 K/ul (4.8-10.8)
[2023-03-19 08:42] LABS: Creatinine Clr Calc Pharmacy 101.6 ml/min; Est GFR (African American) 129.2 ml/min; Est GFR (Non-African American) 111.5 ml/min
[2023-03-19] MEDS: VITAMIN B COMPLEX TAB PO SCH (09:07)
[2023-03-19] MEDS: VENLAFAXINE HCL XR 150 MG CAPXR PO SCH (09:08)
[2023-03-19] MEDS: VENLAFAXINE HCL XR 75 MG CAPXR PO SCH (09:08)
[2023-03-19] MEDS: CHOLECALCIFEROL 1,000 UNITS 25 MCG TAB PO SCH (09:08)
[2023-03-19] MEDS: VIBEGRON 75 MG TAB PO SCH (09:08)
[2023-03-19] MEDS: HEPARIN SOD 5,000 UNIT/0.5 ML VIAL SQ SCH ×2 (09:09→21:54)
[2023-03-19] MEDS: MULTIVITAMIN TAB PO SCH (09:09)
[2023-03-19] MEDS: metroNIDAZOLE 500 MG/100 ML BAG IV SCH ×2 (09:16→16:32)
--- NOTE | 2023-03-19 09:32 | Surgery Consultation ---
Date of Consultation March 19, 2023 Assessment & Plan (1) Acute diverticulitis: (2) Failure of outpatient treatment: (3) Leukocytosis: Plan 47 year-old female with recent hospitalization in [facility] for diverticulitis presented to emergency department with increasing abdominal pain and nausea. CT scan showing transverse colon diverticulitis with complex fluid in pelvis. Leukocytosis of 14,000, afebrile, hemodynamically stable. No signs of perforation or abscess. Abdomen is soft, no peritonitis or rigidity. Plan: Continue conservative measures : NPO for bowel rest, IV antibiotics, IV fluids, antiemetics as needed, pain management as needed Will likely need 3-4 days of IV abx given that she failed oral antibiotics after last admission of 3-4 days of IV abx. Will need colonoscopy in 6-8 weeks low fiber diet once discharged encouraged ambulating continue medical management discussed with Dr. Ivan who agrees with above. See addendum for further recommendations/plan. Supervising Physician Co-Signing Physician Notes I have seen and examined the patient personally and agree with the above assessment and plan. Recurrent diverticulitis, no evidence of perforation or abscess. We will continue her on IV antibiotics and monitor her progress. Clear liquid diet. History of Present Illness Reason for Consultation: Acute diverticulitis Requesting Physician: Dustin Hancock MD Attending Physician: Jared Pedraza DO History of Present Illness Imelda is a 47 year-old female who presented to emergency department last evening with complaint of increasing abdominal pain with associated nausea. Recently admitted at [facility] week prior to for Diverticulitis and treated conservatively with IV antibiotics for 3-4 days and than transitioned to oral Cipro and Flagyl in which she just completed on Saturday. Has been having issues with abdominal bloating and pain off and on for a few months. History of diverticulitis in past treated with oral antibiotics. last colonoscopy was maybe about 7-8 years ago. Has been having issues with constipation in past few months. No pencil thin stools. No blood in stools. Now having loose stools due to Miralax, antibiotics, and low fiber diet. Scheduled for colonoscopy end of April. Currently states her pain is about the same but controlled with pain medication. No fevers or chills since admission. Does not feel as bloated. Pain mostly left of abdomen currently. Allergies Allergy/AdvReac Type Severity Reaction Status Date / Time Penicillins AdvReac Hives Verified 03/13/23 16:20 Home Medications Medication Instructions Recorded Confirmed Type multivitamin 1 tab PO QAM 10/23/19 03/19/23 History medroxyprogesterone 150 mg/mL 150 mg IM . EVERY 90 DAYS 10/26/22 03/19/23 History intramuscular syringe amitriptyline 10 mg tablet 10 mg PO HS #90 tabs 11/21/22 03/19/23 Rx cholecalciferol (vitamin D3) 50 4,000 unit PO QAM 11/29/22 03/19/23 History mcg (2,000 unit) capsule famotidine 20 mg tablet (Pepcid) 20 mg PO BID PRN acid reflux #60 03/13/23 03/19/23 Rx tabs ondansetron HCl 4 mg tablet 4 mg PO Q8H PRN nausea and 03/13/23 03/19/23 Rx vomiting #30 tabs tretinoin 0.1 % topical cream 1 applic topical HS #45 grams 03/13/23 03/19/23 Rx clindamycin phosphate 1 % topical 1 applic topical QAM 03/19/23 03/19/23 History gel mirabegron 50 mg tablet,extended 50 mg PO QAM 03/19/23 03/19/23 History release 24 hr pantoprazole 40 mg tablet,delayed 40 mg PO QAM 03/19/23 03/19/23 History release (Protonix) venlafaxine 150 mg 150 mg PO QAM 03/19/23 03/19/23 History capsule,extended release 24 hr (Effexor XR) venlafaxine 75 mg capsule,extended 75 mg PO QAM 03/19/23 03/19/23 History release 24 hr (Effexor XR) vitamin B complex 1 tab PO QAM 03/19/23 03/19/23 History Patient History Medical History Acid reflux Acne Anxiety Bipolar disorder Depression HLD (hyperlipidemia) IBS (irritable bowel syndrome) Migraine headache OCD (obsessive compulsive disorder) Vitamin D deficiency Surgical History S/P cholecystectomy (2009) Family History Aunt Breast cancer, Onset Age: 65 Mother Myocardial infarction, Onset Age: 41 Anxiety Depression Diabetes Heart disease Father Anxiety Lung cancer Diabetes Hypertension Lung disease Myocardial infarction Lymphoma Brother Anxiety Denies family history of Ovarian cancer Prostate cancer Colorectal cancer Social History Smoking Status: Never smoker Second Hand Exposure: No; Do You Dip or Chew Tobacco: No; Hx Alcohol Use: Yes Alcohol type: beer and wine Alcohol Intake Frequency: 2-3 x/Week Alcohol Intake Frequency Comment: few drinks per week Hx Substance Use: Yes Last Used Substance: Unknown Preferred Language: Turkish Communication Ability: Effective Visual Impairment: No Limitations Hearing Ability: Normal 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 Beliefs That Will Affect Care: None marital status: Single Current Living Situation: Alone Current Living Situation Comment: lives with mom current occupational status: disabled How many Children do You have: 3 Other Information That Helps Us Care for You: No Feels Safe at Home: Yes Safety Concerns: Feels Safe At This Time Childhood Exposure to Second-Hand Smoke: Yes Diet: regular caffeine: Yes (Coffee x 1 cup per day.) during the past year weight has: remained stable Dental Care, Regularly: Yes Physical Activity Frequency: Does not Exercise Seatbelt Use: always Sunscreen Use: Yes Assistive Devices: Glasses Review of Systems Review of Systems: All systems reviewed & are unremarkable except as noted in HPI & below Physical Exam Constitutional: WD/WN, vitals as above cooperative and comfortable; no acute distress and not ill appearing Respiratory: normal respiratory effort, lungs clear to auscultation Cardiovascular: RRR, no murmur, no edema Gastrointestinal (Abdomen): Inspection/Auscultation: abdomen normal to inspection, + abdominal surgical scar (laparoscopic cholecystectomy scars) and + hypoactive bowel sounds; abdomen not distended and + abnormal bowel sounds Percussion/Palpation: + abdomen tender (Left mid and lower abdomen) and abdomen soft; no guarding, abdomen not rigid and abdomen not firm Skin: no rashes, warm and dry Psychiatric: Orientation: alert and oriented x 3 Results & Data Vital Signs (Past 12 Hours) Vital Signs Temp Pulse Pulse Resp BP BP Pulse Ox 03/19/23 07:34 36.7 C 79 16 104/56 L 97 03/19/23 05:50 36.7 C 97 H 18 126/82 98 03/19/23 04:00 73 17 97 03/19/23 04:00 108/62 03/19/23 03:31 80 14 97 03/19/23 03:31 100/65 03/19/23 03:30 71 15 91 03/19/23 03:00 77 14 96 03/19/23 03:00 121/86 03/19/23 02:30 77 16 130/86 98 03/19/23 02:00 64 18 116/80 97 03/19/23 01:40 72 15 118/84 98 03/19/23 01:00 85 21 123/77 98 03/19/23 00:30 76 22 131/82 96 03/19/23 00:00 73 18 121/77 98 03/18/23 23:30 79 17 118/75 98 03/18/23 23:00 78 18 120/78 98 03/18/23 22:39 93 H 16 163/102 H 99 O2 Del Method 03/19/23 07:34 Room Air 03/19/23 05:50 Room Air 03/19/23 04:00 03/19/23 04:00 03/19/23 03:31 03/19/23 03:31 03/19/23 03:30 03/19/23 03:00 03/19/23 03:00 03/19/23 02:30 Room Air 03/19/23 02:00 Room Air 03/19/23 01:40 Room Air 03/19/23 01:00 Room Air 03/19/23 00:30 Room Air 03/19/23 00:00 Room Air 03/18/23 23:30 Room Air 03/18/23 23:00 Room Air 03/18/23 22:39 Room Air Laboratory Results 03/19/23 03/19/23 03/19/23 Range/Units 08:02 08:02 00:17 WBC 12.64 H (4.8-10.8) K/ul RBC 3.61 L (4.20-5.40) M/uL Hgb 12.0 (12.0-16.0) g/dl Hct 33.9 L (37.0-47.0) % MCV 93.9 (80.0-100.0) fL MCH 33.2 (25.0-34.0) pg MCHC 35.4 (32.0-36.0) g/dL RDW Std Deviation 43.4 (36.4-46.3) fL RDW Coeff of [place] 12.5 (11.5-14.5) % Plt Count 262 (130-400) K/uL MPV 9.1 L (9.4-12.4) fL Immature Gran % (Auto) % Neut % (Auto) % Lymph % (Auto) % [place] % (Auto) % Eos % (Auto) % Baso % (Auto) % Neut # (Auto) (1.40-6.50) K/uL Lymph # (Auto) (1.2-3.4) K/uL [place] # (Auto) (0.11-0.59) K/uL Eos # (Auto) (0-0.50) K/uL Baso # (Auto) (0-0.2) K/uL Immature Gran # (Auto) (0.01-0.20) K/uL Sodium 139 (136-145) mmol/L Potassium 4.0 (3.5-5.1) mmol/L Chloride 108 H (98-107) mmol/L Carbon Dioxide 25 (21-32) mmol/L Anion Gap 6 (3-11) BUN 6 (6-23) mg/dl Creatinine 0.53 L (0.6-1.2) mg/dl Est Cr Clr Drug Dosing 101.6 ml/min Est GFR ( Amer) 129.2 ml/min Est GFR (Non-Af Amer) 111.5 ml/min BUN/Creatinine Ratio (10-20) Glucose (70-99(Fasting)) mg/dl Fasting Glucose 107 H (70-99) mg/dl Lactate (0.4-2.0) mmol/L Calcium 9.0 (8.6-10.3) mg/dl Total Bilirubin (0.2-1.0) mg/dl AST (13-39) U/L ALT (7-52) U/L Alkaline Phosphatase (34-104) U/L Total Protein (6.0-8.3) gm/dl Albumin (3.4-5.0) gm/dl Globulin (2.5-4.0) gm/dl Albumin/Globulin Ratio (0.9-2) Lipase (11-82) U/L HCG, Qual (Negative) Urine Color Urine Appearance (Clear) Urine pH (4.5-7.5) Ur Specific [place] (1.000-1.030) Urine Protein (Negative) Urine Glucose (UA) (Negative) Urine Ketones (Negative) Urine Blood (Negative) Urine Nitrite (Negative) Urine Bilirubin (Negative) Urine Urobilinogen (Negative) Ur Leukocyte Esterase (Negative) Urine WBC (Auto) (0-5) /hpf Urine RBC (Auto) (0-4) /hpf U Hyaline Cast (Auto) (0-5) /lpf U Epithel Cells (Auto) (0-5) /lpf Urine Bacteria (Auto) (Negative) SARS-CoV-2, RNA, NAAT NEGATIVE (NEGATIVE) 03/18/23 03/18/23 03/18/23 Range/Units 23:43 22:39 20:31 WBC (4.8-10.8) K/ul RBC (4.20-5.40) M/uL Hgb (12.0-16.0) g/dl Hct (37.0-47.0) % MCV (80.0-100.0) fL MCH (25.0-34.0) pg MCHC (32.0-36.0) g/dL RDW Std Deviation (36.4-46.3) fL RDW Coeff of [place]anie (11.5-14.5) % Plt Count (130-400) K/uL MPV (9.4-12.4) fL Immature Gran % (Auto) % Neut % (Auto) % Lymph % (Auto) % [place] % (Auto) % Eos % (Auto) % Baso % (Auto) % Neut # (Auto) (1.40-6.50) K/uL Lymph # (Auto) (1.2-3.4) K/uL [place] # (Auto) (0.11-0.59) K/uL Eos # (Auto) (0-0.50) K/uL Baso # (Auto) (0-0.2) K/uL Immature Gran # (Auto) (0.01-0.20) K/uL Sodium (136-145) mmol/L Potassium (3.5-5.1) mmol/L Chloride (98-107) mmol/L Carbon Dioxide (21-32) mmol/L Anion Gap (3-11) BUN (6-23) mg/dl Creatinine (0.6-1.2) mg/dl Est Cr Clr Drug Dosing ml/min Est GFR ( Amer) ml/min Est GFR (Non-Af Amer) ml/min BUN/Creatinine Ratio (10-20) Glucose (70-99(Fasting)) mg/dl Fasting Glucose (70-99) mg/dl Lactate 0.9 (0.4-2.0) mmol/L Calcium (8.6-10.3) mg/dl Total Bilirubin (0.2-1.0) mg/dl AST (13-39) U/L ALT (7-52) U/L Alkaline Phosphatase (34-104) U/L Total Protein (6.0-8.3) gm/dl Albumin (3.4-5.0) gm/dl Globulin (2.5-4.0) gm/dl Albumin/Globulin Ratio (0.9-2) Lipase (11-82) U/L HCG, Qual Negative (Negative) Urine Color Yellow Urine Appearance Cloudy A (Clear) Urine pH 8.0 H (4.5-7.5) Ur Specific [place] 1.017 (1.000-1.030) Urine Protein Negative (Negative) Urine Glucose (UA) Negative (Negative) Urine Ketones Negative (Negative) Urine Blood Negative (Negative) Urine Nitrite Negative (Negative) Urine Bilirubin Negative (Negative) Urine Urobilinogen Negative (Negative) Ur Leukocyte Esterase 1+ H (Negative) Urine WBC (Auto) 5-10 H (0-5) /hpf Urine RBC (Auto) 0-4 (0-4) /hpf U Hyaline Cast (Auto) 1-5 (0-5) /lpf U Epithel Cells (Auto) >30 H (0-5) /lpf Urine Bacteria (Auto) Negative (Negative) SARS-CoV-2, RNA, NAAT (NEGATIVE) 03/18/23 03/18/23 Range/Units 20:31 20:31 WBC 14.50 H (4.8-10.8) K/ul RBC 4.22 (4.20-5.40) M/uL Hgb 13.7 (12.0-16.0) g/dl Hct 40.1 (37.0-47.0) % MCV 95.0 (80.0-100.0) fL MCH 32.5 (25.0-34.0) pg MCHC 34.2 (32.0-36.0) g/dL RDW Std Deviation 43.3 (36.4-46.3) fL RDW Coeff of Tiffanie 12.4 (11.5-14.5) % Plt Count 340 (130-400) K/uL MPV 9.1 L (9.4-12.4) fL Immature Gran % (Auto) 0.5 % Neut % (Auto) 74.5 % Lymph % (Auto) 16.6 % [place] % (Auto) 7.4 % Eos % (Auto) 0.7 % Baso % (Auto) 0.3 % Neut # (Auto) 10.80 H (1.40-6.50) K/uL Lymph # (Auto) 2.41 (1.2-3.4) K/uL [place] # (Auto) 1.08 H (0.11-0.59) K/uL Eos # (Auto) 0.10 (0-0.50) K/uL Baso # (Auto) 0.04 (0-0.2) K/uL Immature Gran # (Auto) 0.07 (0.01-0.20) K/uL Sodium 139 (136-145) mmol/L Potassium 3.8 (3.5-5.1) mmol/L Chloride 102 (98-107) mmol/L Carbon Dioxide 29 (21-32) mmol/L Anion Gap 8 (3-11) BUN 8 (6-23) mg/dl Creatinine 0.59 L (0.6-1.2) mg/dl Est Cr Clr Drug Dosing 91.2 ml/min Est GFR ( Amer) 124.7 ml/min Est GFR (Non-Af Amer) 107.6 ml/min BUN/Creatinine Ratio 13.6 (10-20) Glucose 153 H (70-99(Fasting)) mg/dl Fasting Glucose (70-99) mg/dl Lactate (0.4-2.0) mmol/L Calcium 9.8 (8.6-10.3) mg/dl Total Bilirubin 0.6 (0.2-1.0) mg/dl AST 20 (13-39) U/L ALT 24 (7-52) U/L Alkaline Phosphatase 78 (34-104) U/L Total Protein 7.6 (6.0-8.3) gm/dl Albumin 4.6 (3.4-5.0) gm/dl Globulin 3.0 (2.5-4.0) gm/dl Albumin/Globulin Ratio 1.5 (0.9-2) Lipase 21 (11-82) U/L HCG, Qual (Negative) Urine Color Urine Appearance (Clear) Urine pH (4.5-7.5) Ur Specific [place] (1.000-1.030) Urine Protein (Negative) Urine Glucose (UA) (Negative) Urine Ketones (Negative) Urine Blood (Negative) Urine Nitrite (Negative) Urine Bilirubin (Negative) Urine Urobilinogen (Negative) Ur Leukocyte Esterase (Negative) Urine WBC (Auto) (0-5) /hpf Urine RBC (Auto) (0-4) /hpf U Hyaline Cast (Auto) (0-5) /lpf U Epithel Cells (Auto) (0-5) /lpf Urine Bacteria (Auto) (Negative) SARS-CoV-2, RNA, NAAT (NEGATIVE) Diagnostic Findings Exam(s): CT ABDOMEN + PELVIS With Contrast IV Amt: 81ml Optiray 320 EXAM: CT Abdomen and Pelvis With Intravenous Contrast CLINICAL HISTORY: Reason for exam: pain, hx divertic. TECHNIQUE: Axial computed tomography images of the abdomen and pelvis with intravenous contrast. CTDI is 12.69 mGy and DLP is 576.1 mGy-cm. Automated exposure control was utilized for the study. A dose lowering technique was utilized adhering to the principles of ALARA. CONTRAST: Patient received 81ml Optiray 320 of IV contrast COMPARISON: CT abdomen pelvis 02/07/2022 FINDINGS: ABDOMEN: Liver: Unremarkable. Gallbladder and bile ducts: Status post cholecystectomy. Pancreas: Unremarkable. Spleen: Unremarkable. Adrenals: Unremarkable. Kidneys and ureters: Unremarkable. No obstructing stones. No hydronephrosis. Stomach and bowel: Acute diverticulitis of the transverse colon. Moderate inflammatory changes. No perforation. PELVIS: Appendix: No findings to suggest acute appendicitis. Bladder: Unremarkable. Reproductive: Unremarkable as visualized. ABDOMEN and PELVIS: Intraperitoneal space: Complex free fluid within the pelvis. No drainable abscess. No free air. Bones/joints: No acute fracture. Soft tissues: Unremarkable. Vasculature: Unremarkable. Lymph nodes: Unremarkable. IMPRESSION: 1. Acute diverticulitis of the transverse colon. No perforation. 2. Complex free fluid within the pelvis. No drainable abscess. Electronically signed by: Tai Mcdonnell MD 03/19/23 00:10 AM
[2023-03-19] MEDS: D5W AND NSS 1,000 ML IV SCH (09:33)
--- NOTE | 2023-03-19 09:36 | Gastrointestinal Consultation ---
Date of Consultation March 19, 2023 Assessment & Plan (1) Acute diverticulitis: Patient with recurrent episodes of diverticulitis. Discussed case with Dr. Nj. - continue with IV flagyl and ceftriaxone and monitor clinical course. WBC improved today. - patient is set up for outpatient colonoscopy on 05/20/23. will plan to keep this at this time. Supervising Physician Co-Signing Physician Notes Agree with ROSS Huddleston as above Abd: Soft, Tender LLQ, ND, +BS Continue current therapy and supportive care History of Present Illness Reason for Consultation: diverticulitis Requesting Physician: Dustin Hancock MD Attending Physician: Jared Pedraza, DO History of Present Illness Patient is a 47 year old female with a past medical history of acid reflux, IBS, bipolar disorder who came to the ED department yesterday with complaints of diffuse abdominal pain consistent with past episodes of diverticulitis that started 1 day prior to admission. Rated 10/10. sharp. She tells me that she had another episode of this about 2 weeks ago and was seen in [facility] for this. At that time it was questionable whether diverticulitis or colitis. she was given ceftriaxone and flagyl IV and discharged on flagyl and cefdinir. She tells me that she had done well with this and finished with these antibiotics last week on Saturday. Pain started again about 4 days later. She admits that this is associated with nausea. no emesis. She tells me that her stools are typically "pellet" shaped about once or twice a week and that she has always had constipation issues. Recently she started miralax which she finds has been helpful to get her more regular. She tells me that she has had several episodes of diverticulitis over the course of several months - she could not quantify how many episodes. CT 03/19/22 acute diverticulitis of transverse colon, no perforation, complex free fluid in pelvis. no abscess. Currently getting IV flagyl and ceftriaxone as inpatient. wbc has improved to 12.64. Allergies Allergy/AdvReac Type Severity Reaction Status Date / Time Penicillins AdvReac Hives Verified 03/13/23 16:20 Home Medications Medication Instructions Recorded Confirmed Type multivitamin 1 tab PO QAM 10/23/19 03/19/23 History medroxyprogesterone 150 mg/mL 150 mg IM . EVERY 90 DAYS 10/26/22 03/19/23 History intramuscular syringe amitriptyline 10 mg tablet 10 mg PO HS #90 tabs 11/21/22 03/19/23 Rx cholecalciferol (vitamin D3) 50 4,000 unit PO QAM 11/29/22 03/19/23 History mcg (2,000 unit) capsule famotidine 20 mg tablet (Pepcid) 20 mg PO BID PRN acid reflux #60 03/13/23 03/19/23 Rx tabs ondansetron HCl 4 mg tablet 4 mg PO Q8H PRN nausea and 03/13/23 03/19/23 Rx vomiting #30 tabs tretinoin 0.1 % topical cream 1 applic topical HS #45 grams 03/13/23 03/19/23 Rx clindamycin phosphate 1 % topical 1 applic topical QAM 03/19/23 03/19/23 History gel mirabegron 50 mg tablet,extended 50 mg PO QAM 03/19/23 03/19/23 History release 24 hr pantoprazole 40 mg tablet,delayed 40 mg PO QAM 03/19/23 03/19/23 History release (Protonix) venlafaxine 150 mg 150 mg PO QAM 03/19/23 03/19/23 History capsule,extended release 24 hr (Effexor XR) venlafaxine 75 mg capsule,extended 75 mg PO QAM 03/19/23 03/19/23 History release 24 hr (Effexor XR) vitamin B complex 1 tab PO QAM 03/19/23 03/19/23 History Patient History Medical History Acid reflux Acne Anxiety Bipolar disorder Depression HLD (hyperlipidemia) IBS (irritable bowel syndrome) Migraine headache OCD (obsessive compulsive disorder) Vitamin D deficiency Surgical History S/P cholecystectomy (2009) Family History Aunt Breast cancer, Onset Age: 65 Mother Myocardial infarction, Onset Age: 41 Anxiety Depression Diabetes Heart disease Father Anxiety Lung cancer Diabetes Hypertension Lung disease Myocardial infarction Lymphoma Brother Anxiety Denies family history of Ovarian cancer Prostate cancer Colorectal cancer Social History Smoking Status: Never smoker Second Hand Exposure: No; Do You Dip or Chew Tobacco: No; Hx Alcohol Use: Yes Alcohol type: beer and wine Alcohol Intake Frequency: 2-3 x/Week Alcohol Intake Frequency Comment: few drinks per week Hx Substance Use: Yes Last Used Substance: Unknown Preferred Language: Botswanan Communication Ability: Effective Visual Impairment: No Limitations Hearing Ability: Normal General Dentist/Owner Required: No Beliefs That Will Affect Care: None marital status: Single Current Living Situation: Alone Current Living Situation Comment: lives with mom current occupational status: disabled How many Children do You have: 3 Other Information That Helps Us Care for You: No Feels Safe at Home: Yes Safety Concerns: Feels Safe At This Time Childhood Exposure to Second-Hand Smoke: Yes Diet: regular caffeine: Yes (Coffee x 1 cup per day.) during the past year weight has: remained stable Dental Care, Regularly: Yes Physical Activity Frequency: Does not Exercise Seatbelt Use: always Sunscreen Use: Yes Assistive Devices: Glasses Review of Systems Review of Systems: All systems reviewed & are unremarkable except as noted in HPI & below Physical Exam Constitutional: WD/WN, vitals as above Respiratory: normal respiratory effort, lungs clear to auscultation Cardiovascular: RRR, no murmur, no edema Gastrointestinal (Abdomen): mild diffuse tenderness, no guarding, soft, normal bowel sounds. Skin: no rashes, warm and dry Psychiatric: Orientation: alert and oriented x 3 Affect: euthymic affect Results & Data Vital Signs (Past 12 Hours) Vital Signs Temp Pulse Pulse Resp BP BP Pulse Ox 03/19/23 07:34 98.1 F 79 16 104/56 L 97 03/19/23 05:50 98.1 F 97 H 18 126/82 98 03/19/23 04:00 73 17 97 03/19/23 04:00 108/62 03/19/23 03:31 80 14 97 03/19/23 03:31 100/65 03/19/23 03:30 71 15 91 03/19/23 03:00 77 14 96 03/19/23 03:00 121/86 03/19/23 02:30 77 16 130/86 98 03/19/23 02:00 64 18 116/80 97 03/19/23 01:40 72 15 118/84 98 03/19/23 01:00 85 21 123/77 98 03/19/23 00:30 76 22 131/82 96 03/19/23 00:00 73 18 121/77 98 03/18/23 23:30 79 17 118/75 98 03/18/23 23:00 78 18 120/78 98 03/18/23 22:39 93 H 16 163/102 H 99 O2 Del Method 03/19/23 07:34 Room Air 03/19/23 05:50 Room Air 03/19/23 04:00 03/19/23 04:00 03/19/23 03:31 03/19/23 03:31 03/19/23 03:30 03/19/23 03:00 03/19/23 03:00 03/19/23 02:30 Room Air 03/19/23 02:00 Room Air 03/19/23 01:40 Room Air 03/19/23 01:00 Room Air 03/19/23 00:30 Room Air 03/19/23 00:00 Room Air 03/18/23 23:30 Room Air 03/18/23 23:00 Room Air 03/18/23 22:39 Room Air PG Care Time/CCT Total # of Minutes Spent Total Time Spent with Patient: Total time spent is greater than 50% in coordination of care (as documented) at patient's floor/unit and/or counseling patient: Coding Level of Care Code 21826 IN/OBS CONSULT LVL 3,45M Diagnoses Acute diverticulitis K57.92 Time Spent (min) 48
[2023-03-19] MEDS: PANTOprazole 40 MG in SYRINGE 0 ML IV SCH (12:20)
[2023-03-19] MEDS: oxyCODONE/ACETAMINOPHEN 5mg/325mg TAB PO PRN ×2 (12:24→21:58)
[2023-03-19] MEDS: cefTRIAXone SODIUM 2,000 MG in DEXTROSE 5% 50 ML IV SCH (21:51)
[2023-03-19] MEDS: AMITRIPTYLINE HCL 10 MG TAB PO SCH (21:56)
--- NOTE | 2023-03-19 23:32 | Hospitalist Progress Note ---
Date of Service March 19, 2023 Assessment & Plan (1) Acute diverticulitis: Plan: Patient presents to ED with complaints of acute worsening of abdominal pain associated with significant nausea and vomiting. Patient also reports poor p.o. intake over the past few days. Patient found to have elevated white count of 14.5 in in the ED along with physical examination indicating tenderness in the left lower quadrant area CT of the abdomen shows evidence of inflammation without perforation consistent with acute diverticulitis of the transverse colon. will keep patient n.p.o. and continue IV fluids. IV antibiotic therapy with IV ceftriaxone and IV Flagyl with analgesics as needed GI consultation (2) Leukocytosis: Plan: Patient found to evaluate a white count of 14.5 in the ED Acute leukocytosis secondary to underlying inflammation from acute diverticulitis Continue IV antibiotics with IV ceftriaxone and IV Flagyl as patient seem to have failed outpatient therapy on oral antibiotics (3) Acid reflux: Plan: Patient has a known history of GERD and is on oral PPI at home We will continue patient on IV PPI therapy (4) Bipolar disorder: Plan: Continue home dose of venlafaxine and buspirone once patient can tolerate oral meds. Admission and Anticipated Discharge Date Admission Date: March 19, 2023 Subjective Patient tolerating clear liquids but not hungry yet. Objective WBC count down to 12.64 Review of Systems Review of Systems: Patient had 10 days of antibiotic from [facility] and worsened two days after completion. Physical Exam Constitutional: WD/WN, vitals as above Eyes: PERRL, conjunctivae normal, anicteric sclerae ENMT: external ear and nose normal, oropharynx normal Respiratory: normal respiratory effort, lungs clear to auscultation Cardiovascular: RRR, no murmur, no edema Gastrointestinal (Abdomen): Bowel sounds hypoactive and abdomen generally tender Musculoskeletal: no cyanosis or clubbing, extremities motor strength 5/5 Skin: no rashes, warm and dry Neurologic: patellar DTR's 2+ bilat, sensation intact Results & Data Results & Data Vital Signs (Past 12 Hours) Vital Signs Temp Pulse Resp BP Pulse Ox O2 Del Method 03/19/23 20:59 36.9 C 73 18 117/72 96 Room Air 03/19/23 15:43 36.8 C 68 16 107/68 96 Room Air PG Care Time/CCT Total # of Minutes Spent Total Time Spent with Patient: Total time spent is greater than 50% in coordination of care (as documented) at patient's floor/unit and/or counseling patient: Coding Level of Care Code 10814 SUB INP/OBS CARE MIN Diagnoses Acute diverticulitis K57.92 Leukocytosis D72.829 Acid reflux K21.9 Bipolar disorder F31.9 Time Spent (min) 42
[2023-03-20] MEDS: metroNIDAZOLE 500 MG/100 ML BAG IV SCH ×3 (00:16→16:17)
[2023-03-20] MEDS: D5W AND NSS 1,000 ML IV SCH (03:00)
[2023-03-20] MEDS: MULTIVITAMIN TAB PO SCH (08:20)
[2023-03-20] MEDS: HEPARIN SOD 5,000 UNIT/0.5 ML VIAL SQ SCH ×2 (08:20→21:14)
[2023-03-20] MEDS: CHOLECALCIFEROL 1,000 UNITS 25 MCG TAB PO SCH (08:20)
[2023-03-20] MEDS: VENLAFAXINE HCL XR 75 MG CAPXR PO SCH (08:20)
[2023-03-20] MEDS: VIBEGRON 75 MG TAB PO SCH (08:20)
[2023-03-20] MEDS: VENLAFAXINE HCL XR 150 MG CAPXR PO SCH (08:20)
[2023-03-20] MEDS: VITAMIN B COMPLEX TAB PO SCH (08:20)
--- NOTE | 2023-03-20 10:42 | Surgery Progress Note ---
Date of Service March 20, 2023 Assessment & Plan (1) Acute diverticulitis: (2) Failure of outpatient treatment: (3) Leukocytosis: Plan 47 year-old female with recent hospitalization in [facility] for diverticulitis presented to emergency department with increasing abdominal pain and nausea. CT scan showing transverse colon diverticulitis with complex fluid in pelvis. Leukocytosis of 14,000, afebrile, hemodynamically stable. No signs of perforation or abscess. 03/20/2023 avss, leukocytosis resolved pain improving slowly Plan: Continue conservative measures : IV antibiotics, IV fluids, antiemetics as needed, pain management as needed Will likely need 3-4 days of IV abx given that she failed oral antibiotics after last admission of 3-4 days of IV abx. Will need colonoscopy in 6-8 weeks possibly full liquid diet low fiber diet once discharged encouraged ambulating continue medical management Dr. Ivan has seen and examined pt, agrees with above. Admission and Anticipated Discharge Date Admission Date: March 19, 2023 Subjective feeling better today, pain not as severe about 6/10 today no n,v only drinking water passing gas, no bowel movement Physical Exam Constitutional: WD/WN, vitals as above no acute distress and not ill appearing Gastrointestinal (Abdomen): Inspection/Auscultation: abdomen normal to inspection; abdomen not distended Percussion/Palpation: + abdomen tender (LLQ on mild palpation, suprapubic) and abdomen soft; no guarding, abdomen not rigid and abdomen not firm Skin: no rashes, warm and dry Psychiatric: Orientation: alert and oriented x 3 Results & Data Vital Signs (Past 12 Hours) Vital Signs Temp Pulse Resp BP Pulse Ox O2 Del Method 03/20/23 07:25 36.8 C 69 16 114/82 94 Room Air Laboratory Results 03/20/23 03/20/23 Range/Units 09:24 09:24 WBC 7.26 (4.8-10.8) K/ul RBC 3.52 L (4.20-5.40) M/uL Hgb 11.5 L (12.0-16.0) g/dl Hct 33.5 L (37.0-47.0) % MCV 95.2 (80.0-100.0) fL MCH 32.7 (25.0-34.0) pg MCHC 34.3 (32.0-36.0) g/dL RDW Std Deviation 42.7 (36.4-46.3) fL RDW Coeff of Tiffanie 12.3 (11.5-14.5) % Plt Count 275 (130-400) K/uL MPV 9.5 (9.4-12.4) fL Immature Gran % (Auto) 0.4 % Neut % (Auto) 72.5 % Lymph % (Auto) 18.0 % Glenn % (Auto) 8.0 % Eos % (Auto) 0.8 % Baso % (Auto) 0.3 % Neut # (Auto) 5.26 (1.40-6.50) K/uL Lymph # (Auto) 1.31 (1.2-3.4) K/uL Glenn # (Auto) 0.58 (0.11-0.59) K/uL Eos # (Auto) 0.06 (0-0.50) K/uL Baso # (Auto) 0.02 (0-0.2) K/uL Immature Gran # (Auto) 0.03 (0.01-0.20) K/uL Sodium 140 (136-145) mmol/L Potassium 3.9 (3.5-5.1) mmol/L Chloride 108 H (98-107) mmol/L Carbon Dioxide 25 (21-32) mmol/L Anion Gap 7 (3-11) BUN 4 L (6-23) mg/dl Creatinine 0.52 L (0.6-1.2) mg/dl Est Cr Clr Drug Dosing 103.5 ml/min Est GFR ( Amer) 130.0 ml/min Est GFR (Non-Af Amer) 112.2 ml/min BUN/Creatinine Ratio 7.7 L (10-20) Glucose 121 H (70-99(Fasting)) mg/dl Calcium 9.0 (8.6-10.3) mg/dl
[2023-03-20 10:47] LABS: BUN Creatinine Ratio 7.7 (10-20); Basophils # (auto) 0.02 K/uL (0-0.2); Basophils % (auto) 0.3 %; Creatinine Clr Calc Pharmacy 103.5 ml/min; Eosinophils # (auto) 0.06 K/uL (0-0.50); Eosinophils % (auto) 0.8 %; Est GFR (Non-African American) 112.2 ml/min; Hematocrit (blood only) 33.5 % (37.0-47.0); Hemoglobin 11.5 g/dl (12.0-16.0); Immature Granulocytes # (auto) 0.03 K/uL (0.01-0.20); Immature Granulocytes % (auto) 0.4 %; Lymphocytes # (auto) 1.31 K/uL (1.2-3.4); Mean Corpuscular Hemoglobin 32.7 pg (25.0-34.0); Mean Corpuscular Hgb Conc 34.3 g/dL (32.0-36.0); Mean Corpuscular Volume 95.2 fL (80.0-100.0); Mean Platelet Volume 9.5 fL (9.4-12.4); Monocytes # (auto) 0.58 K/uL (0.11-0.59); Neutrophils # (auto) 5.26 K/uL (1.40-6.50); Neutrophils % (auto) 72.5 %; Platelet Count 275 K/uL (130-400); Potassium 3.9 mmol/L (3.5-5.1); RDW Coefficient of Variation 12.3 % (11.5-14.5); RDW Standard Deviation 42.7 fL (36.4-46.3); Red Blood Count 3.52 M/uL (4.20-5.40); White Blood Count 7.26 K/ul (4.8-10.8)
[2023-03-20] MEDS: PANTOprazole 40 MG in SYRINGE 0 ML IV SCH (12:48)
[2023-03-20] MEDS: oxyCODONE/ACETAMINOPHEN 5mg/325mg TAB PO PRN (21:13)
[2023-03-20] MEDS: AMITRIPTYLINE HCL 10 MG TAB PO SCH (21:14)
[2023-03-20] MEDS: cefTRIAXone SODIUM 2,000 MG in DEXTROSE 5% 50 ML IV SCH (22:49)
[2023-03-21] MEDS: metroNIDAZOLE 500 MG/100 ML BAG IV SCH ×3 (00:28→16:12)
--- NOTE | 2023-03-21 06:38 | Hospitalist Progress Note ---
Date of Service March 20, 2023 Assessment & Plan (1) Acute diverticulitis: Plan: Patient presents to ED with complaints of acute worsening of abdominal pain associated with significant nausea and vomiting. Patient also reports poor p.o. intake over the past few days. Patient found to have elevated white count of 14.5 in in the ED along with physical examination indicating tenderness in the left lower quadrant area CT of the abdomen shows evidence of inflammation without perforation consistent with acute diverticulitis of the transverse colon. will keep patient n.p.o. and continue IV fluids. IV antibiotic therapy with IV ceftriaxone and IV Flagyl with analgesics as needed GI consultation (2) Leukocytosis: Plan: Patient found to evaluate a white count of 14.5 in the ED Acute leukocytosis secondary to underlying inflammation from acute diverticulitis Continue IV antibiotics with IV ceftriaxone and IV Flagyl as patient seem to have failed outpatient therapy on oral antibiotics (3) Acid reflux: Plan: Patient has a known history of GERD and is on oral PPI at home We will continue patient on IV PPI therapy (4) Bipolar disorder: Plan: Continue home dose of venlafaxine and buspirone once patient can tolerate oral meds. Admission and Anticipated Discharge Date Admission Date: March 19, 2023 Subjective Today although not hungry is tolerating liquids and Feeling better as regards to pain control. I added oral oxycodone with beneficial effect. She also continues with IV antibiotic therapy. Yesterday feeling better today, pain not as severe about 6/10 today no n,v only drinking water passing gas, no bowel movement Physical Exam Constitutional: WD/WN, vitals as above Eyes: PERRL, conjunctivae normal, anicteric sclerae ENMT: external ear and nose normal, oropharynx normal Respiratory: normal respiratory effort, lungs clear to auscultation Cardiovascular: RRR, no murmur, no edema Gastrointestinal (Abdomen): Generally tender without localization but no rebound guarding or rigidity and less tender than yesterday Musculoskeletal: no cyanosis or clubbing, extremities motor strength 5/5 Skin: no rashes, warm and dry Neurologic: patellar DTR's 2+ bilat, sensation intact Results & Data Results & Data Vital Signs (Past 12 Hours) Vital Signs Temp Pulse Resp BP Pulse Ox O2 Del Method 03/20/23 21:14 37 C 70 18 110/71 95 Room Air PG Care Time/CCT Total # of Minutes Spent Total Time Spent with Patient: Total time spent is greater than 50% in coordination of care (as documented) at patient's floor/unit and/or counseling patient: Coding Level of Care Code 95964 SUB INP/OBS CARE MIN Diagnoses Acute diverticulitis K57.92 Leukocytosis D72.829 Acid reflux K21.9 Bipolar disorder F31.9
[2023-03-21] MEDS: VITAMIN B COMPLEX TAB PO SCH (09:07)
[2023-03-21] MEDS: CHOLECALCIFEROL 1,000 UNITS 25 MCG TAB PO SCH (09:08)
[2023-03-21] MEDS: MULTIVITAMIN TAB PO SCH (09:08)
[2023-03-21] MEDS: VENLAFAXINE HCL XR 75 MG CAPXR PO SCH (09:08)
[2023-03-21] MEDS: HEPARIN SOD 5,000 UNIT/0.5 ML VIAL SQ SCH ×2 (09:09→21:13)
[2023-03-21] MEDS: VENLAFAXINE HCL XR 150 MG CAPXR PO SCH (09:09)
[2023-03-21] MEDS: VIBEGRON 75 MG TAB PO SCH (09:09)
[2023-03-21] MEDS: PANTOprazole 40 MG in SYRINGE 0 ML IV SCH (11:07)
--- NOTE | 2023-03-21 12:15 | Surgery Progress Note ---
Date of Service March 21, 2023 Assessment & Plan (1) Acute diverticulitis: (2) Failure of outpatient treatment: (3) Leukocytosis: Plan 47 year-old female with recent hospitalization in [facility] for diverticulitis presented to emergency department with increasing abdominal pain and nausea. CT scan showing transverse colon diverticulitis with complex fluid in pelvis. Leukocytosis of 14,000, afebrile, hemodynamically stable. No signs of perforation or abscess. 03/20/2023 avss, leukocytosis resolved pain improving slowly 03/21/2023 avss pain improving no n,v tolerating full liquids Plan: Continue conservative measures : IV antibiotics, IV fluids, antiemetics as needed, pain management as needed Will likely need 3-4 days of IV abx given that she failed oral antibiotics , Can likely transition to oral antibiotics and discharge tomorrow Will need colonoscopy in 6-8 weeks low fiber diet now low fiber diet once discharged encouraged ambulating continue medical management will need follow-up with GI, states she has had years of fulling full after eating and drinking water at times, may need evaluation with gastric emptying study which can be determine by GI as outpatient once recovered from acute diverticulitis. Dr. Ivan has seen pt, agrees with above. Admission and Anticipated Discharge Date Admission Date: March 19, 2023 Supervising Physician Co-Signing Physician Notes I have seen and examined the patient personally and agree with the above assessment plan. She is doing much better. We will advance her diet as tolerated. Most likely discharge home tomorrow on oral antibiotics. Subjective feeling better, pain still present but slowly improving tolerating full liquids passing gas no n,v Physical Exam Constitutional: WD/WN, vitals as above no acute distress and not ill appearing Gastrointestinal (Abdomen): Inspection/Auscultation: abdomen normal to inspection and normal bowel sounds; abdomen not distended Percussion/Palpation: + abdomen tender (LLQ and left mid abdomen on mild palpation) and abdomen soft; no guarding, abdomen not rigid and abdomen not firm Skin: no rashes, warm and dry Psychiatric: A+Ox3, euthymic affect Results & Data Vital Signs (Past 12 Hours) Vital Signs Temp Pulse Resp BP Pulse Ox O2 Del Method 03/21/23 07:50 37.2 C 86 16 123/81 96 Room Air
[2023-03-21] MEDS: oxyCODONE/ACETAMINOPHEN 5mg/325mg TAB PO PRN (21:12)
[2023-03-21] MEDS: cefTRIAXone SODIUM 2,000 MG in DEXTROSE 5% 50 ML IV SCH (21:13)
[2023-03-21] MEDS: AMITRIPTYLINE HCL 10 MG TAB PO SCH (21:13)
--- NOTE | 2023-03-21 22:52 | Hospitalist Progress Note ---
Date of Service March 21, 2023 Assessment & Plan (1) Acute diverticulitis: Plan: Patient presents to ED with complaints of acute worsening of abdominal pain associated with significant nausea and vomiting. Patient also reports poor p.o. intake over the past few days prior to admission. Patient found to have elevated white count of 14.5 in in the ED along with physical examination indicating tenderness in the left lower quadrant area CT of the abdomen shows evidence of inflammation without perforation consistent with acute diverticulitis of the transverse colon. Initially NPO, diet advanced, will continue low fiber diet. IV antibiotic therapy with IV ceftriaxone and IV Flagyl with analgesics as needed GI consultation: may need EGD as an outpatient due to epigastric pain will also need colonsocopy may need evaluation with gastric emptying study which can be determine by GI as outpatient once recovered from acute diverticulitis. (2) Leukocytosis: Plan: Patient found to evaluate a white count of 14.5 in the ED Acute leukocytosis secondary to underlying inflammation from acute diverticulitis Continue IV antibiotics with IV ceftriaxone and IV Flagyl as patient seem to have failed outpatient therapy on oral antibiotics leukocytosis improved. (3) Acid reflux: Plan: Patient has a known history of GERD and is on oral PPI at home We will continue patient on IV PPI therapy (4) Bipolar disorder: Plan: Continue home dose of venlafaxine and buspirone once patient can tolerate oral meds. Admission and Anticipated Discharge Date Admission Date: March 19, 2023 Subjective Patient reports tolerating her food. She reports taking NSAIDs as an outpatient for her abd. pain. She continues to have abd. pain. Review of Systems Review of Systems: All systems reviewed & are unremarkable except as noted in HPI & below Physical Exam Physical Exam: Head and ENT no thyroid enlargement trachea midline Cardiovascular S1-S2 are normal no S3 Lungs bilateral air entry decreased at bases with no wheezing Abdomen soft mild distention with tenderness in the left lower quadrant and epigastric areas no rebound tenderness Extremity shows trace edema Neurologically no focal deficits Skin shows no rash no cyanosis Results & Data Results & Data Vital Signs (Past 12 Hours) Vital Signs Temp Pulse Pulse Resp BP Pulse Ox O2 Del Method 03/21/23 21:03 36.9 C 81 16 112/74 96 Room Air 03/21/23 15:27 36.7 C 73 16 113/72 97 Room Air PG Care Time/CCT Total # of Minutes Spent Total Time Spent with Patient: Total time spent is greater than 50% in coordination of care (as documented) at patient's floor/unit and/or counseling patient: Coding Level of Care Code 61682 SUB INP/OBS CARE MIN Diagnoses Acute diverticulitis K57.92 Leukocytosis D72.829 Acid reflux K21.9 Bipolar disorder F31.9
[2023-03-22] MEDS: metroNIDAZOLE 500 MG/100 ML BAG IV SCH ×2 (00:29→09:08)
--- NOTE | 2023-03-22 08:26 | Surgery Progress Note ---
Date of Service March 22, 2023 Assessment & Plan (1) Acute diverticulitis: (2) Failure of outpatient treatment: (3) Leukocytosis: Plan 47 year-old female with recent hospitalization in [facility] for diverticulitis presented to emergency department with increasing abdominal pain and nausea. CT scan showing transverse colon diverticulitis with complex fluid in pelvis. Leukocytosis of 14,000, afebrile, hemodynamically stable. No signs of perforation or abscess. 03/22/2023 avss pain improving no n,v tolerating regular diet Plan: Continue conservative measures transition to oral antibiotics and possible d/c today Will need colonoscopy in 6-8 weeks low fiber diet now low fiber diet once discharged encouraged ambulating continue medical management will need follow-up with GI, states she has had years of fulling full after eating and drinking water at times, may need evaluation with gastric emptying study which can be determine by GI as outpatient once recovered from acute diverticulitis. Admission and Anticipated Discharge Date Admission Date: March 19, 2023 Subjective doing fairly well; some abdominal pain after eating last night Physical Exam Gastrointestinal (Abdomen): Inspection/Auscultation: + abdominal surgical scar (laparoscopic cholecystectomy scars) Percussion/Palpation: + abdomen tender (LLQ and left mid abdomen on mild palpation) and abdomen soft; no guarding, abdomen not rigid and abdomen not firm Results & Data Vital Signs (Past 12 Hours) Vital Signs Temp Pulse Pulse Resp BP Pulse Ox O2 Del Method 03/22/23 07:44 36.8 C 78 16 118/82 98 Room Air 03/21/23 21:03 36.9 C 81 16 112/74 96 Room Air
[2023-03-22 09:04] LABS: Hematocrit (blood only) 36.9 % (37.0-47.0); Hemoglobin 12.9 g/dl (12.0-16.0); Mean Corpuscular Hemoglobin 32.3 pg (25.0-34.0); Mean Corpuscular Volume 92.5 fL (80.0-100.0); Mean Platelet Volume 9.5 fL (9.4-12.4); Platelet Count 314 K/uL (130-400); Red Blood Count 3.99 M/uL (4.20-5.40); White Blood Count 7.91 K/ul (4.8-10.8)
[2023-03-22] MEDS: VIBEGRON 75 MG TAB PO SCH (09:07)
[2023-03-22] MEDS: CHOLECALCIFEROL 1,000 UNITS 25 MCG TAB PO SCH (09:08)
[2023-03-22] MEDS: VENLAFAXINE HCL XR 150 MG CAPXR PO SCH (09:08)
[2023-03-22] MEDS: MULTIVITAMIN TAB PO SCH (09:08)
[2023-03-22] MEDS: VITAMIN B COMPLEX TAB PO SCH (09:08)
[2023-03-22] MEDS: VENLAFAXINE HCL XR 75 MG CAPXR PO SCH (09:08)
[2023-03-22] MEDS: HEPARIN SOD 5,000 UNIT/0.5 ML VIAL SQ SCH (09:09)
[2023-03-22 09:19] LABS: C Reactive Protein 1.56 mg/dl (0-0.5); Calcium 9.7 mg/dl (8.6-10.3); Creatinine Clr Calc Pharmacy 82.8 ml/min; Est GFR (African American) 120.8 ml/min; Est GFR (Non-African American) 104.3 ml/min; Potassium 3.7 mmol/L (3.5-5.1)
--- NOTE | 2023-03-22 10:12 | Communication Note ---
Date of Service: March 22, 2023 We were asked from primary service to add egd to outpatient colonoscopy given history of acid reflux. Added onto outpatient schedule for 05/20/23.
[2023-03-22] MEDS: PANTOprazole 40 MG in SYRINGE 0 ML IV SCH (10:43)
[2023-03-22] MEDS ORDERED: metroNIDAZOLE 500 MG TAB PO STA (16:50)
--- NOTE | 2023-03-22 17:01 | Discharge Summary ---
Date of Service March 22, 2023 Admission HPI Per Admitting Provider This is a 47-year-old female with past medical history significant for history of acid reflux, irritable bowel syndrome bipolar disorder who presents to the emergency department with complaints of abdominal pain associated with nausea symptoms. Patient reports he was recently seen in [facility] for evaluation of similar abdominal pain about 2 weeks ago and was treated with a course of antibiotics including Cipro and Flagyl which she completed 2 days ago. Patient however reports that he started experiencing progressive worsening of symptoms over the past few days and reports that today the pain worsened to severe and patient hence decided to present to ED for further evaluation. Patient reports ongoing nausea symptoms with decreased p.o. intake and reports not feeling well overall. Patient was evaluated in the ED and is given a dose of IV Zofran to control nausea symptoms had a CT of the abdomen that shows evidence of diverticulitis involving the transverse colon. Patient was given IV fluids with IV antibiotics and is being admitted for further management at this time. Discharge Exam Head and ENT no thyroid enlargement trachea midline Cardiovascular S1-S2 are normal no S3 Lungs bilateral air entry decreased at bases with no wheezing Abdomen soft mild distention with tenderness in the left lower quadrant and epigastric areas no rebound tenderness Extremity shows trace edema Neurologically no focal deficits Skin shows no rash no cyanosis Discharge Data Allergies Allergy/AdvReac Type Severity Reaction Status Date / Time Penicillins AdvReac Hives Verified 03/13/23 16:20 Consultations 03/19/23 00:58 ED Decision to Admit Stat 03/19/23 05:38 Consult Gastroenterology Routine Consult General Surgery Routine Ordered Studies 03/18/23 22:04 CT Abd and Pelvis [CT abd pelvis IV con only] Stat Hospital Course (1) Acute diverticulitis: Patient presents to ED with complaints of acute worsening of abdominal pain associated with significant nausea and vomiting. Patient also reports poor p.o. intake over the past few days prior to admission. Patient found to have elevated white count of 14.5 in in the ED along with physical examination indicating tenderness in the left lower quadrant area CT of the abdomen shows evidence of inflammation without perforation consistent with acute diverticulitis of the transverse colon. Initially NPO, diet advanced, will continue low fiber diet. IV antibiotic therapy with IV ceftriaxone and IV Flagyl with analgesics as neede d GI consultation: may need EGD as an outpatient due to epigastric pain will also need colonsocopy may need evaluation with gastric emptying study which can be determine by GI as outpatient once recovered from acute diverticulitis. (2) Leukocytosis: Patient found to evaluate a white count of 14.5 in the ED Acute leukocytosis secondary to underlying inflammation from acute diverticulitis Continue IV antibiotics with IV ceftriaxone and IV Flagyl as patient seem to have failed outpatient therapy on oral antibiotics leukocytosis improved. (3) Acid reflux: Patient has a known history of GERD and is on oral PPI at home We will continue patient on IV PPI therapy (4) Bipolar disorder: Continue home dose of venlafaxine and buspirone once patient can tolerate oral meds. Discharge Plan Discharge Items Patient Disposition: Home - Self-Care Reason For Visit: ACUTE DIVERTICULTIS Discharge Diagnosis: acute diverticulitis Condition on Discharge: Good Activity: Resume your previous activity Non-emergency contact: Primary Care Provider Call non-emergency contact if: you have any medication questions Follow-up/Referrals: Anusha Kohler, [Primary Care Provider] - Diet: Low Fiber Addtl Attending Provider Instructions: Take antibiotics at the following time for the next 11 days. trimethoprim/sulfamethoxazole start tonight (around 10pm ). Take it twice a day, try to do it at 12 hours apart. You could take it at 8 am and 8 pm starting tomorrow if it simplifies antibiotic time. The metronidazole you also start tonight. This is every 8 hours: you have been taking it at 8 am, 4 pm, and midnight. colonoscopy and EGD scheduled for 05/20/23. Please followup with PCP in 1-2 weeks. Pending Studies at Discharge: No Stand-Alone Forms: My [facility], Smoking Cessation Medications and DC Order Prescriptions: New sulfamethoxazole-trimethoprim 800-160 mg tablet 1 tab PO BID Qty: 22 0RF metronidazole 500 mg tablet 500 mg PO Q8H Qty: 33 0RF Continued amitriptyline 10 mg tablet 10 mg PO HS Qty: 90 2RF cholecalciferol (vitamin D3) 50 mcg (2,000 unit) capsule 4,000 unit PO QAM multivitamin tablet 1 tab PO QAM medroxyprogesterone 150 mg/mL syringe 150 mg IM . EVERY 90 DAYS tretinoin 0.1 % cream 1 applic topical HS Qty: 45 2RF Rx Instructions: 1 applic topical at bedtime; to face ondansetron HCl 4 mg tablet 4 mg PO Q8H PRN (Reason: nausea and vomiting) Qty: 30 0RF famotidine [Pepcid] 20 mg tablet 20 mg PO BID PRN (Reason: acid reflux) Qty: 60 2RF clindamycin phosphate 1 % gel 1 applic TOP QAM Rx Instructions: apply to face venlafaxine [Effexor XR] 75 mg capsule,extended release 24hr 75 mg PO QAM venlafaxine [Effexor XR] 150 mg capsule,extended release 24hr 150 mg PO QAM pantoprazole [Protonix] 40 mg tablet,delayed release (DR/EC) 40 mg PO QAM mirabegron 50 mg tablet extended release 24 hr 50 mg PO QAM vitamin B complex Tablet 1 tab PO QAM Discharge Orders: Discharge Order (Routine); Ordered 03/22/23 Ordered By: Bhupendra Segovia Admission Data Admit Date/Time: 03/19/23 03:58 Attending Provider: Bhupendra Segovia Admit Provider: Dustin Hancock Primary Care Provider: Anusha Kohler Other Providers: Dustin Hancock ; Peter Coleman ; Luigi Nj ; Ashlyn Gallagher ; Deborah Toscano ; Barbara Anderson ; Leeann Kinney ; Klever Galvez ; Pablo Eaton ; Agata eNal ; Jagdeep Mcdaniel ; Rahat Deng ; Otilia Cleveland ; Ryanne Harris ; Valorie Nunn ; Marti Pleitez ; Johanna Medina ; Maximiliano Driscoll ; Marcos Welch ; Jyoti Young ; Shay Allen Jr ; Bob Deleon ; Wing Hubbard ; Ridge Saeed ; Ricardo Dewitt ; Braulio Mcdonough ; Sabine Alexander ; Jerry Torres ; Haja Caba ; Ger Mendoza Coding Diagnoses Acute diverticulitis K57.92 Leukocytosis D72.829 Acid reflux K21.9 Bipolar disorder F31.9
== END 2023-03-22 18:26 | disposition home or self-care (01) | DRG 392 ==
LOC: ED 20:13 → 3W 03-19 03:58 → SUATTDRO 03-19 03:58 → 3W 03-19 05:24